=== PATIENT | male | born 1955 | race Two or more races ===

== ENCOUNTER 2020-04-24 01:45 | Emergency (ER) | payer SELFPAY ==
--- NOTE | 2020-04-24 02:36 | EDM.PDOC ---
ED HPI GENERAL MEDICAL PROBLEM - General Chief Complaint: ENT Problem Stated Complaint: NOSE BLEED Time Seen by Provider: 04/24/20 01:55 Source of Information: Reports: Patient, Other (Friend) History Limitations: Reports: No Limitations - History of Present Illness INITIAL COMMENTS - FREE TEXT/NARRATIVE: Mr. Floyd is a very pleasant 64-year-old man with no chronic medical problems and no past surgical history, who now presents the ED with painless right-sided epistaxis that began yesterday morning, 04/23/2020. He has attempted to stop the bleeding by packing it with toilet paper, to no avail. He states that he had similar epistaxis in December, but was able to get it to stop on his own. No recent trauma to the nose, and the patient is not on an anticoagulant. Here in the ED, the patient is found to be hemodynamically stable, afebrile, saturating 98% on room air. Other than the epistaxis, the patient denies recent fever, chills, sore throat, ear pain, nasal or sinus congestion, cough, dyspnea, chest pain, palpitations, nausea, vomiting, constipation, diarrhea, abdominal pain, urinary symptoms, recent weight gain or weight loss, recent bloody bowel movements or black bowel movements, recent joint aches, headaches, or rashes. The patient does not have a PCP. - Related Data Allergies Allergy/AdvReac Type Severity Reaction Status Date / Time aspirin Allergy Severe Bleeding Verified 04/24/20 01:55 Home Meds: Home Meds . 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 ED EXAM, ENT - Physical Exam Exam: See Below Exam Limited By: No Limitations General Appearance: Alert, WD/WN, No Apparent Distress Eye Exam: Bilateral Eye: EOMI, Normal Inspection Ears: Normal External Exam, Normal Canal, Hearing Grossly Normal, Normal TMs Nose: Other (Fresh bleeding from the inferior half of the right nasal septum, but no visible vessel. Left nostril normal.) Mouth/Throat: Normal Gums, Normal Lips, Normal Teeth, Other (Fresh blood seen trickling down the posterior oropharynx) Head: Atraumatic, Normocephalic Neck: Normal Inspection, Supple, Non-Tender, Full Range of Motion. No: Lymphadenopathy (L), Lymphadenopathy (R) ED ENT PROCEDURES - Epistaxis Procedure Indication: Epistaxis, Uncontrolled Recent anticoagulants/antiplatlets: No Uncontrolled HTN: No Recent septal/nasal surgery: No Site of bleeding: Right Nare, Anterior Clearing of clots: Patient Blew Nose Topical Meds: Topical Cocaine Ice pack to area: No Anterior Packing: Inflatable Nasal Tampon (5.5 cm Rapid Rhino) Complications: No Course - Vital Signs Last Recorded V/S: Last Vital Signs Temp 36.4 C 04/24/20 01:50 Pulse 88 04/24/20 01:50 Resp 20 04/24/20 01:50 BP 135/73 04/24/20 01:50 Pulse Ox 98 04/24/20 01:50 - Orders/Labs/Meds Meds: Medications Discontinued Medications Generic Name Dose Route Start Last Admin Trade Name Karine PRN Reason Stop Dose Admin Cocaine HCl 3 ml 04/24/20 02:05 04/24/20 02:20 Cocaine Hcl TOP 04/24/20 02:06 3 ml ONETIME STA Administration - Re-Assessments/Exams Free Text/Narrative Re-Assessment/Exam: 04/24/20 02:30 As above, the patient has had right-sided epistaxis since yesterday morning, 04/23/2020. I had him gently blow his nose and gargle with warm water to clear out any blood and clots. The bleeding appears to be coming from the lower half of the right nasal septum, although I do not see any distinct blood vessel that I can cauterize. I have treated the area with numerous applications of topical cocaine, and I am currently having the patient pinch his nose tightly with some cocaine soaked cotton-tipped swabs, in the hope that I can avoid having to place a balloon. 04/24/20 02:58 After several minutes of having the patient pinch his nose firmly with cocaine soaked cotton-tipped swabs, I had the patient blow his nose and gargle. At this time, there is no visible bleeding. We will wait about 15 minutes, and if there is still no bleeding, he can be discharged home, however, if the patient again bleeds, we will need to place a balloon. 04/24/20 03:14 Unfortunately, there is still some bleeding. Not much, but I am going to have to place a Rapid Rhino. 04/24/20 03:20 A 5.5 cm anterior Rapid Rhino was placed. The patient tolerated the procedure well. I will recheck the pressure in about 10 minutes. 04/24/20 03:31 I added a little more air, and Shari will now tape the tube to the patient's face. I will discharge him home with a referral to ENT, as well as to the clinic. I would like him to be seen 04/25/2020. Departure - Departure Time of Disposition: 03:31 Disposition: Home, Self-Care 01 Condition: Good Clinical Impression: Right-sided epistaxis - Discharge Information *PRESCRIPTION DRUG MONITORING PROGRAM REVIEWED*: Not Applicable *COPY OF PRESCRIPTION DRUG MONITORING REPORT IN PATIENT NELL: Not Applicable Referrals: Rob Oneill MD [Ordering Only Provider] - Krysten Diaz NP [Nurse Practitioner] - Forms: ED Department Discharge Additional Instructions: You were seen in the emergency room for a right-sided nosebleed since Tuesday morning, 03/23/2020. A Rapid Rhino balloon has been placed into your right nostril to control the bleeding. Leave the balloon alone. You may take [id number] Tylenol or ibuprofen as needed for discomfort. Follow-up with the ENT Dr. Rob Oneill, in [place], this coming Tuesday, 2019. If that is not possible, then follow-up with Krysten Diaz NP, or any 1 of the other providers who is available, on 04/25/2020. If you are unable to get in to see either Dr. Oneill or one of the clinic providers on Tuesday, or for any other problems, please do not hesitate to return to the ER. Sepsis Event Note - Evaluation Sepsis Screening Result: No Definite Risk - Focused Exam Vital Signs: Vital Signs Temp Pulse Resp BP Pulse Ox 04/24/20 01:50 36.4 C 88 20 135/73 98 Date Exam was Performed: 04/24/20 Time Exam was Performed: 03:31
== END 2020-04-24 03:39 | disposition home or self-care (01) ==
LOC: JD.ED 01:45
DX: R04.0 Epistaxis (principal); Z88.6 Allergy status to analgesic agent; Z87.891 Personal history of nicotine dependence
CPT/HCPCS: 30903; 99283-25

== ENCOUNTER 2020-04-25 11:20 | Emergency (ER) | payer SELFPAY ==
[2020-04-25] MEDS ORDERED: Sodium Chloride 0.9% 10 ML Syringe FLUSH PRN (12:25)
--- NOTE | 2020-04-25 12:38 | EDM.PDOC ---
ED HPI GENERAL MEDICAL PROBLEM - General Chief Complaint: ENT Problem Stated Complaint: NOSE BLEED Time Seen by Provider: 04/25/20 11:31 Source of Information: Reports: Patient History Limitations: Reports: No Limitations - History of Present Illness INITIAL COMMENTS - FREE TEXT/NARRATIVE: Patient is a 64-year-old male who presents to the emergency department for continued right-sided nosebleed. He was seen in our emergency department last night. An anterior Rhino Rocket was placed. Patient states since that time it has continued to drain down the back of his throat. He went to the clinic this morning and was directed to the emergency department. ENT was not available today. He complains of dizziness upon standing. He has a history of nosebleeds, however states they are "not very often". This episode of bleeding began yesterday morning. He had packed the nose with tissue and states that normally works for him, however the bleeding did not stop. He denies any chronic health problems aside from arthritis in his knees for which he takes extended release ibuprofen daily. - Related Data Allergies Allergy/AdvReac Type Severity Reaction Status Date / Time aspirin Allergy Severe Bleeding Verified 04/24/20 01:55 Home Meds: Home Meds . 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 ED EXAM, ENT - Physical Exam Exam: See Below Exam Limited By: No Limitations General Appearance: Alert, WD/WN, No Apparent Distress Nose: Other (Right-sided Rhino Rocket intact. Patient is using blood into the oropharynx. No active bleeding out the anterior portion of the nare.) Respiratory/Chest: No Respiratory Distress, Lungs Clear, Normal Breath Sounds, No Accessory Muscle Use, Chest Non-Tender Cardiovascular: Normal Peripheral Pulses, Regular Rate, Rhythm, No Edema, No Gallop, No JVD, No Murmur, No Rub Neurological: Alert, Oriented, CN II-XII Intact, Normal Cognition, Normal Gait, Normal Reflexes, No Motor/Sensory Deficits Psychiatric: Normal Affect, Normal Mood Skin: Warm, Dry, Intact, Normal Color, No Rash Course - Vital Signs Last Recorded V/S: Last Vital Signs Temp 97.8 F 04/25/20 11:32 Pulse 105 H 04/25/20 11:32 Resp 20 04/25/20 11:32 BP 115/87 04/25/20 11:32 Pulse Ox 98 04/25/20 11:32 - Orders/Labs/Meds Orders: Active Orders 24 hr Category Date Time Status Peripheral IV Care [RC] . DIRECTED Care 04/25/20 12:25 Active ANTIBODY IDENTIFICATION [BBK] Stat Lab 04/25/20 12:02 Results RED BLOOD CELLS LP [BBK] Stat Lab 04/25/20 12:02 Results TYPE AND SCREEN [BBK] Stat Lab 04/25/20 12:02 Results Peripheral IV Insertion Adult [OM.PC] Stat Oth 04/25/20 12:25 Ordered Labs: Laboratory Tests 04/25/20 04/25/20 04/25/20 Range/Units 12:02 12:02 12:02 WBC 9.18 H (4.23-9.07) K/mm3 RBC 2.89 L (4.63-6.08) M/mm3 Hgb 7.2 L* (13.7-17.5) gm/dl Hct 24.5 L (40.1-51.0) % MCV 84.8 (79.0-92.2) fl MCH 24.9 L (25.7-32.2) pg MCHC 29.4 L (32.2-35.5) g/dl RDW Std Deviation 44.2 H (35.1-43.9) fL Plt Count 202 (163-337) K/mm3 MPV 11.1 (9.4-12.3) fl Neut % (Auto) 67.6 (34.0-67.9) % Lymph % (Auto) 19.8 L (21.8-53.1) % Bartholomew % (Auto) 11.2 (5.3-12.2) % Eos % (Auto) 1.0 (0.8-7.0) Baso % (Auto) 0.2 (0.1-1.2) % Neut # (Auto) 6.20 H (1.78-5.38) K/mm3 Lymph # (Auto) 1.82 (1.32-3.57) K/mm3 Bartholomew # (Auto) 1.03 H (0.30-0.82) K/mm3 Eos # (Auto) 0.09 (0.04-0.54) K/mm3 Baso # (Auto) 0.02 (0.01-0.08) K/mm3 Manual Slide Review Abnormal smear PT 10.8 (9.7-12.0) SECONDS INR 0.99 APTT 22 (22-31) SECONDS Sodium 140 (136-145) mEq/L Potassium 3.9 (3.5-5.1) mEq/L Chloride 106 (98-107) mEq/L Carbon Dioxide 27 (21-32) mEq/L Anion Gap 10.9 (5-15) BUN 32 H (7-18) mg/dL Creatinine 1.0 (0.7-1.3) mg/dL Est Cr Clr Drug Dosing 68.23 mL/min Estimated GFR (MDRD) > 60 (>60) mL/min BUN/Creatinine Ratio 32.0 H (14-18) Glucose 106 (80-115) mg/dL Calcium 8.7 (8.5-10.1) mg/dL Total Bilirubin 0.3 (0.2-1.0) mg/dL AST 24 (15-37) U/L ALT 48 (16-63) U/L Alkaline Phosphatase 79 (46-116) U/L Total Protein 6.4 (6.4-8.2) g/dl Albumin 3.1 L (3.4-5.0) g/dl Globulin 3.3 gm/dL Albumin/Globulin Ratio 0.9 L (1-2) Blood Type Gel Antibody Screen Crossmatch 04/25/20 Range/Units 12:02 WBC (4.23-9.07) K/mm3 RBC (4.63-6.08) M/mm3 Hgb (13.7-17.5) gm/dl Hct (40.1-51.0) % MCV (79.0-92.2) fl MCH (25.7-32.2) pg MCHC (32.2-35.5) g/dl RDW Std Deviation (35.1-43.9) fL Plt Count (163-337) K/mm3 MPV (9.4-12.3) fl Neut % (Auto) (34.0-67.9) % Lymph % (Auto) (21.8-53.1) % Bartholomew % (Auto) (5.3-12.2) % Eos % (Auto) (0.8-7.0) Baso % (Auto) (0.1-1.2) % Neut # (Auto) (1.78-5.38) K/mm3 Lymph # (Auto) (1.32-3.57) K/mm3 Bartholomew # (Auto) (0.30-0.82) K/mm3 Eos # (Auto) (0.04-0.54) K/mm3 Baso # (Auto) (0.01-0.08) K/mm3 Manual Slide Review PT (9.7-12.0) SECONDS INR APTT (22-31) SECONDS Sodium (136-145) mEq/L Potassium (3.5-5.1) mEq/L Chloride (98-107) mEq/L Carbon Dioxide (21-32) mEq/L Anion Gap (5-15) BUN (7-18) mg/dL Creatinine (0.7-1.3) mg/dL Est Cr Clr Drug Dosing mL/min Estimated GFR (MDRD) (>60) mL/min BUN/Creatinine Ratio (14-18) Glucose (80-115) mg/dL Calcium (8.5-10.1) mg/dL Total Bilirubin (0.2-1.0) mg/dL AST (15-37) U/L ALT (16-63) U/L Alkaline Phosphatase (46-116) U/L Total Protein (6.4-8.2) g/dl Albumin (3.4-5.0) g/dl Globulin gm/dL Albumin/Globulin Ratio (1-2) Blood Type O POSITIVE Gel Antibody Screen Positive Crossmatch See Detail Meds: Medications Discontinued Medications Generic Name Dose Route Start Last Admin Trade Name Freq PRN Reason Stop Dose Admin Sodium Chloride 250 mls @ 25 mls/hr 04/25/20 13:15 Normal Saline IV ASDIRECTED AVELINA Sodium Chloride 1,000 mls @ 150 mls/hr 04/25/20 13:45 04/25/20 13:36 Normal Saline IV 150 mls/hr ASDIRECTED AVELINA Administration Sodium Chloride 10 ml 04/25/20 12:25 04/25/20 12:52 Saline Flush FLUSH 10 ml ASDIRECTED PRN Administration Keep Vein Open - Re-Assessments/Exams Free Text/Narrative Re-Assessment/Exam: Pt is a 64-year-old male who returns to the ER with continued oozing from his right-sided nosebleed. Anterior Rhino Rocket was placed last evening. I inserted an additional 3 cc of air into the Rhino Rocket. Will reassess in about 10 minutes. Also ordered blood work to include a CBC, CMP, APTT, PT/INR as he has been bleeding since yesterday morning. 04/25/20 1200 Patient continues to have oozing despite the additional air inserted. I removed the 5.5 anterior Rhino Rocket and inserted a 7.5 cm anterior posterior Rhino Rocket. Will reassess in 10 minutes. 04/25/20 1210 Patient continues to ooze to the Rhino Rocket. An additional 2 cc of air has been instilled. 04/25/20 1220 Patient is still oozing through anterior portion of the Rhino Rocket. I deflated the balloon and retracted the Rhino Rocket a couple centimeters. Re- instilled 10 cc of air into the Rhino Rocket. 04/25/20 1230 His hemoglobin was found to be 7.2. I have ordered a type and screen and 2 units to be crossmatched. The bleeding from his right nare has decreased, however does continue to ooze. The plan will be to transfuse a unit of RBCs and contact [facility] to discuss transfer. Second unit of packed red blood cells can transfuse enroute. 04/25/20 1320 We have been notified by lab that the patient has antibodies so blood will not be available to transfuse in our ER. I will contact [facility] to discuss transfer 04/25/20 13[address] [facility] Dr. Sheehan in the emergency department accepted patient for transfer. They will consult ENT as needed. Departure - Departure Time of Disposition: 13:30 Disposition: DC/Tfer to Acute Hospital 02 Condition: Good Clinical Impression: Epistaxis, Anemia due to blood loss, acute - Discharge Information Referrals: PCP,None [Primary Care Provider] - Forms: ED Department Discharge Sepsis Event Note - Evaluation Sepsis Screening Result: No Definite Risk - Focused Exam Vital Signs: Vital Signs Temp Pulse Resp BP Pulse Ox 04/25/20 11:32 97.8 F 105 H 20 115/87 98 Date Exam was Performed: 04/25/20 Time Exam was Performed: 17:13 - My Orders Last 24 Hours: My Active Orders 04/25/20 12:02 ANTIBODY IDENTIFICATION [BBK] Stat RED BLOOD CELLS LP [BBK] Stat TYPE AND SCREEN [BBK] Stat 04/25/20 12:25 Peripheral IV Care [RC] . DIRECTED Peripheral IV Insertion Adult [OM.PC] Stat - Assessment/Plan Last 24 Hours: My Active Orders 04/25/20 12:02 ANTIBODY IDENTIFICATION [BBK] Stat RED BLOOD CELLS LP [BBK] Stat TYPE AND SCREEN [BBK] Stat 04/25/20 12:25 Peripheral IV Care [RC] . DIRECTED Peripheral IV Insertion Adult [OM.PC] Stat
[2020-04-25] MEDS ORDERED: Sodium Chloride 0.9% 250 ML IV SCH (13:15)
[2020-04-25] MEDS ORDERED: Sodium Chloride 0.9% 1,000 ML IV SCH (13:45)
== END 2020-04-25 14:33 ==
LOC: JD.ED 11:20
DX: R04.0 Epistaxis (principal); D62 Acute posthemorrhagic anemia
CPT/HCPCS: 30903; 36415; 80053; 85025; 85610; 85730; 99284; J7030; 30901; 86850; 86870; 86900; 86901; 86905; 99283

== ENCOUNTER 2020-10-08 06:44 | Emergency (ER) | payer MEDICAID, OTHER ==
[2020-10-08] MEDS ORDERED: Oxymetazoline 0.05% Nasal Spray 30 ML Bottle NAS ONE (07:11)
[2020-10-08] MEDS ORDERED: Lidocaine 1% with EPINEPHrine 1:100,000 10 ML MDV INJECT ONE (07:11)
[2020-10-08] MEDS ORDERED: Tranexamic Acid 1,000 MG in Sodium Chloride 0.9% 100 ML IV SCH (07:15)
--- NOTE | 2020-10-08 07:59 | EDM.PDOC ---
ED HPI GENERAL MEDICAL PROBLEM - General Chief Complaint: ENT Problem Stated Complaint: BLOODY NOSE Time Seen by Provider: 10/08/20 07:01 Source of Information: Reports: Patient History Limitations: Reports: No Limitations - History of Present Illness INITIAL COMMENTS - FREE TEXT/NARRATIVE: The patient presents with epistaxis. This started about 2 hours ago and it is from the right nostril. He has a history of nose bleeds. He was seen here in April twice for a nose bleed from the right nostril. A rhino rocket was placed and his was anemic and he had to be transferred to [place]. The patient said not much was done when he got there. He has a history of low platelets however in April they were normal. Onset: Gradual Duration: Day(s): (2) Severity: Moderate Improves with: Reports: None Worsens with: Reports: None Associated Symptoms: Reports: No Other Symptoms - Related Data Allergies Allergy/AdvReac Type Severity Reaction Status Date / Time aspirin AdvReac Severe Bleeding Verified 10/08/20 07:32 Home Meds: Home Meds . 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) ED ROS ENT - Review of Systems Review Of Systems: See Below Constitutional: Reports: No Symptoms HEENT: Reports: Nosebleed Respiratory: Reports: No Symptoms Cardiovascular: Reports: No Symptoms Endocrine: Reports: No Symptoms GI/Abdominal: Reports: No Symptoms : Reports: No Symptoms Musculoskeletal: Reports: No Symptoms ED EXAM, ENT - Physical Exam Exam: See Below Exam Limited By: No Limitations General Appearance: Alert, No Apparent Distress Ears: Normal External Exam Nose: Active Bleeding (from right nostril) Mouth/Throat: Normal Inspection Head: Atraumatic, Normocephalic Neck: Normal Inspection Respiratory/Chest: No Respiratory Distress ED ENT PROCEDURES - Epistaxis Procedure Indication: Epistaxis Recent anticoagulants/antiplatlets: No Uncontrolled HTN: No Recent septal/nasal surgery: No Site of bleeding: Right Nare Clearing of clots: Patient Blew Nose Topical Meds: Phenylephrine, Other (lidocaine with epinephrine and TXA) Chemical cautery: Silver Nitrate Topical Complications: No Course - Vital Signs Last Recorded V/S: Last Vital Signs Temp 97.9 F 10/08/20 06:56 Pulse 89 10/08/20 06:56 Resp 18 10/08/20 06:56 BP 138/90 10/08/20 06:56 Pulse Ox 97 10/08/20 06:56 - Orders/Labs/Meds Labs: Laboratory Tests 10/08/20 Range/Units 08:00 WBC 4.06 L (4.23-9.07) K/mm3 RBC 5.06 (4.63-6.08) M/mm3 Hgb 11.3 L D (13.7-17.5) gm/dl Hct 39.1 L (40.1-51.0) % MCV 77.3 L D (79.0-92.2) fl MCH 22.3 L (25.7-32.2) pg MCHC 28.9 L (32.2-35.5) g/dl RDW Std Deviation 55.7 H (35.1-43.9) fL Plt Count 165 (163-337) K/mm3 MPV 10.5 (9.4-12.3) fl Neut % (Auto) 64.0 (34.0-67.9) % Lymph % (Auto) 21.7 L (21.8-53.1) % Bailey % (Auto) 11.3 (5.3-12.2) % Eos % (Auto) 2.5 (0.8-7.0) Baso % (Auto) 0.5 (0.1-1.2) % Neut # (Auto) 2.60 (1.78-5.38) K/mm3 Lymph # (Auto) 0.88 L (1.32-3.57) K/mm3 Bailey # (Auto) 0.46 (0.30-0.82) K/mm3 Eos # (Auto) 0.10 (0.04-0.54) K/mm3 Baso # (Auto) 0.02 (0.01-0.08) K/mm3 Meds: Medications Discontinued Medications Generic Name Dose Route Start Last Admin Trade Name Freq PRN Reason Stop Dose Admin Tranexamic Acid 1,000 mg/ 110 mls @ 400 mls/hr 10/08/20 07:15 Sodium Chloride IV ONETIME AVELINA Lidocaine/Epinephrine 10 ml 10/08/20 07:11 10/08/20 07:18 Xylocaine 1% With Epinephrine 1:100,000 INJECT 10/08/20 07:12 10 ml ONETIME ONE Administration Oxymetazoline HCl 10 ml 10/08/20 07:11 10/08/20 07:17 Nasal Decongestant [place] OJ 10/08/20 07:12 1 inhalation ONETIME ONE Administration Tranexamic Acid 1,000 mg 10/08/20 07:19 10/08/20 07:20 Cyklokapron TOP 10/08/20 07:20 1,000 mg ONETIME ONE Administration - Re-Assessments/Exams Free Text/Narrative Re-Assessment/Exam: 10/08/20 08:03 I used TXA, lidocaine with epinephrine, and afrin to slow the bleeding and then I used silver nitrate to cauterize the bleeding. 10/08/20 08:29 The bleeding has stopped. His Hgb was a little low at 11.3. His platelets are normal at 165. I will discharge him home. Departure - Departure Time of Disposition: 08:30 Disposition: Home, Self-Care 01 Condition: Good Clinical Impression: Right-sided epistaxis - Discharge Information *PRESCRIPTION DRUG MONITORING PROGRAM REVIEWED*: Not Applicable *COPY OF PRESCRIPTION DRUG MONITORING REPORT IN PATIENT NELL: Not Applicable Referrals: PCP,None [Primary Care Provider] - Krysten Diaz, DENIS [Nurse Practitioner] - 1 Week Forms: ED Department Discharge Additional Instructions: A couple times per day put some antibiotic ointment in each nostril for a couple weeks or you can get a product called Mantador or NasoGel. There is also a product called NasalCEASE that can help with nose bleeds. Follow up with your doctor and please return if you are worse. Sepsis Event Note (ED) - Evaluation Sepsis Screening Result: No Definite Risk - Focused Exam Vital Signs: Vital Signs Temp Pulse Resp BP Pulse Ox 10/08/20 06:56 97.9 F 89 18 138/90 97
== END 2020-10-08 10:35 | disposition home or self-care (01) ==
LOC: JD.ED 06:44
DX: R04.0 Epistaxis (principal); Z88.6 Allergy status to analgesic agent
CPT/HCPCS: 30903; 36415; 85025; 99283; A9270; 30901; 99282

== ENCOUNTER 2020-10-10 08:55 | Emergency (ER) | payer OTHER ==
--- NOTE | 2020-10-10 09:28 | EDM.PDOC ---
ED HPI GENERAL MEDICAL PROBLEM - General Chief Complaint: ENT Problem Stated Complaint: NOSE BLEED FOLLOW UP Time Seen by Provider: 10/10/20 09:12 Source of Information: Reports: Patient History Limitations: Reports: No Limitations - History of Present Illness INITIAL COMMENTS - FREE TEXT/NARRATIVE: 65-year-old male presents to the ED for removal of a anterior posterior Rhino R ocket right naris. This was placed by Dr. Mendoza yesterday for an aggressive right-sided nosebleed. Reports no bleeding from the naris since the pack was placed and no bleeding down the back of the throat. Onset Date: 10/08/20 Duration: Day(s):, Improving Location: Reports: Face (Recurrent bleeding right anterior nares.) Quality: Reports: Other Severity: Moderate (Here for removal of anterior posterior nasal pack) Improves with: Reports: Other (Eating under control at present with posterior and anterior Rhino Rocket) Context: Reports: Other (Traumatic spontaneous right epistaxis.). Denies: Activity, Exercise, Lifting, Sick Contact, Trauma Associated Symptoms: Reports: Other (He is a little headed and weak. Has developed anemia from nosebleeds in the past.) Treatments PRIVACY COMPLIANCE MANAGER: Reports: Other (see below) - Related Data Allergies Allergy/AdvReac Type Severity Reaction Status Date / Time aspirin AdvReac Severe Bleeding Verified 10/10/20 09:07 Home Meds: Home Meds . 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 Denies: Fever, Chills, Malaise, Fatigue, Weight Loss HEENT: Reports: Other (] Right nares that appears to be soaked with blood) Respiratory: Reports: No Symptoms Cardiovascular: Reports: No Symptoms Endocrine: Reports: No Symptoms GI/Abdominal: Reports: No Symptoms : Reports: No Symptoms Musculoskeletal: Reports: No Symptoms Skin: Reports: No Symptoms Neurological: Reports: No Symptoms Psychiatric: Reports: No Symptoms Hematologic/Lymphatic: Reports: No Symptoms ED EXAM, ENT - Physical Exam Exam: See Below Exam Limited By: No Limitations General Appearance: Alert, WD/WN, No Apparent Distress, Other (Temperature is 3 6.9. Heart rate 91 is sinus respiratory is 12 with O2 sats of 98% room air BP 123/89) Eye Exam: Bilateral Eye: Normal Inspection (No blepharal pallor or scleral icterus.), PERRL Nose: Other (The posterior anterior nasal Rhino Rocket was removed gently from the right nares after deflating the bulbs. There was still appreciable mild bleeding from the anterior nasal septum. This area underwent cauterization with silver nitrate in 5 different spots.) Neck: Normal Inspection, Supple, Non-Tender, Full Range of Motion. No: Lymphadenopathy (L), Lymphadenopathy (R) Course - Vital Signs Last Recorded V/S: Last Vital Signs Temp 36.9 C 10/10/20 09:07 Pulse 91 10/10/20 09:07 Resp 12 10/10/20 09:07 BP 123/89 10/10/20 09:07 Pulse Ox 98 10/10/20 09:07 - Orders/Labs/Meds Labs: Laboratory Tests 10/10/20 Range/Units 10:04 Hgb 11.6 L (13.7-17.5) gm/dl Hct 40.0 L (40.1-51.0) % - Radiology Interpretation Free Text/Narrative:: 65-year-old male presents to the ED for removal of a anterior posterior Rhino Rocket that was placed by Dr. Mendoza yesterday. He did not come under control with transiently casted and 1% lidocaine with epinephrine and Afrin mixture. Patient has had no further bleeding since the Rhino Rocket was placed. I deflated the balloons and was able to remove the Rhino Rocket. Inspection of the nares however shows active bleeding from the right anterior nasal septum. I cauterized this area in 5 different areas with silver nitrate. I will review the patient in the next 10 to 15 minutes. - Re-Assessments/Exams Free Text/Narrative Re-Assessment/Exam: 10/10/20 09:49 on review he still had very active bleeding from the left anterior nasal septum. Further cauterization brought a little bit of it under control but not completely. I therefore packed the nares with Vaseline impregnated tube gauze. I will review him in the next 10 to 15 minutes. 10/10/20 10:14 on recheck patient still has very minimal oozing of pinkish tinged fluid from the anterior nasal septum. The packing itself is not soaked with blood. I will watch him over the next half hour until his hemoglobin and hematocrit returns. 10/10/20 10:54 on rechecks he continues to lose a small amount of blood from the anterior nasal septum. I therefore elected to remove the pack that I had placed earlier and replaced it with another Vaseline impregnated tube gauze pack this with time a little bit further back into the posterior nares. His hemoglobin is 11.6 with hematocrit of 40. Patient was so advised. We will recheck in 15 minutes or so. 10/10/20 11:15 eating has diminished but he still losing slightly I believe from the anterior nasal septum. I am going to send him home and allow him to rest in an easy chair is sitting up for the next 4 to 6 hours. If he continues to ooze or bleed and it does not clot he will have to come back for an anterior posterior nasal pack again. Departure - Departure Time of Disposition: 11:16 Disposition: Home, Self-Care 01 Condition: Fair Clinical Impression: Anterior epistaxis - Discharge Information *PRESCRIPTION DRUG MONITORING PROGRAM REVIEWED*: Not Applicable *COPY OF PRESCRIPTION DRUG MONITORING REPORT IN PATIENT NELL: Not Applicable Instructions: Nosebleed, [id number] Referrals: PCP,None [Primary Care Provider] - Forms: ED Department Discharge Additional Instructions: Evaluation in the emergency room today in regards to having your posterior anterior nasal pack removed that was placed yesterday 24 hours ago. It appears that there is still active bleeding coming from the left anterior nasal septum. Cauterization of this area with silver nitrate was carried out x2 but failed to control the bleeding. Vaseline impregnated gauze packing was therefore placed x2 and there is still remains a mild ooze coming from the left anterior nasal septum. Suggest home to rest for the next 4 to 6 hours. If bleeding is persisting after that time I clot has not performed them please return to the ED for further more aggressive packing. Sepsis Event Note (ED) - Evaluation Sepsis Screening Result: No Definite Risk - Focused Exam Vital Signs: Vital Signs Temp Pulse Resp BP Pulse Ox 10/10/20 09:07 36.9 C 91 12 123/89 98
== END 2020-10-10 11:36 | disposition home or self-care (01) ==
LOC: JD.ED 08:55
DX: R04.0 Epistaxis (principal); Z88.6 Allergy status to analgesic agent
CPT/HCPCS: 30901; 30903; 36415; 85014; 85018; 99282; 99283-25

== ENCOUNTER 2020-12-25 16:06 | Emergency (ER) | payer MEDICAID, OTHER ==
--- NOTE | 2020-12-25 17:20 | EDM.PDOC ---
ED HPI GENERAL MEDICAL PROBLEM - General Chief Complaint: General Stated Complaint: NOSE BLEED Time Seen by Provider: 12/25/20 16:15 Source of Information: Reports: Patient History Limitations: Reports: No Limitations - History of Present Illness INITIAL COMMENTS - FREE TEXT/NARRATIVE: The patient presents with epistaxis. He has a history of this. He has a history of idiopathic thrombocytopenia. He has been here a few time for the same. This started at 8 am this morning. He took Amicar as advised by her doctor when he gets a nose bleed and it did slow down. He does feel weak and drained. He is wondering if his blood counts are off. Onset: Gradual Duration: Hour(s): Severity: Moderate Improves with: Reports: None Worsens with: Reports: None Associated Symptoms: Reports: No Other Symptoms Treatments RN INFUSION: Reports: Other (see below) Other Treatments RN INFUSION: Amicar 500mg - Related Data Allergies Allergy/AdvReac Type Severity Reaction Status Date / Time aspirin AdvReac Severe Bleeding Verified 12/25/20 16:21 Home Meds: Home Meds Aminocaproic Acid [Amicar] 500 mg PO DAILY PRN 12/25/20 [History] Past Medical History HEENT History: Reports: Epistaxis, Impaired Vision Hematologic History: Reports: Idiopathic Thrombocytopenia Social & Family History - Family History Family Medical History: No Pertinent Family History - Tobacco Use Tobacco Use Status *Q: Never Tobacco User - Caffeine Use Caffeine Use: Reports: None - Recreational Drug Use Recreational Drug Use: No - Living Situation & Occupation Living situation: Reports: , Alone 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) ED ROS GENERAL - Review of Systems Review Of Systems: See Below Constitutional: Reports: No Symptoms HEENT: Reports: Other (epistaxis) Respiratory: Reports: No Symptoms Cardiovascular: Reports: No Symptoms Endocrine: Reports: No Symptoms GI/Abdominal: Reports: No Symptoms : Reports: No Symptoms Musculoskeletal: Reports: No Symptoms ED EXAM, GENERAL - Physical Exam Exam: See Below Exam Limited By: No Limitations General Appearance: Alert, No Apparent Distress Ears: Normal External Exam Nose: Other (right nostril bleeding to the anterior septum) Head: Atraumatic, Normocephalic Neck: Normal Inspection Respiratory/Chest: No Respiratory Distress ED EPISTAXIS PROCEDURES - Epistaxis Procedure Indication: Epistaxis Recent anticoagulants/antiplatlets: No Uncontrolled HTN: No Recent septal/nasal surgery: No Site of bleeding: Right Nare Chemical cautery: Silver Nitrate Topical Complications: No Course - Vital Signs Last Recorded V/S: Last Vital Signs Temp 98.5 F 12/25/20 16:24 Pulse 76 12/25/20 16:24 Resp 14 12/25/20 16:24 BP 120/81 12/25/20 16:24 Pulse Ox 95 12/25/20 16:24 - Orders/Labs/Meds Orders: Active Orders 24 hr Category Date Time Status Cardiac Monitoring [RC] . DIRECTED Care 12/25/20 16:33 Active Labs: Laboratory Tests 12/25/20 12/25/20 Range/Units 16:41 16:41 WBC 5.42 (4.23-9.07) K/mm3 RBC 4.12 L (4.63-6.08) M/mm3 Hgb 10.6 L (13.7-17.5) gm/dl Hct 34.6 L (40.1-51.0) % MCV 84.0 D (79.0-92.2) fl MCH 25.7 (25.7-32.2) pg MCHC 30.6 L (32.2-35.5) g/dl RDW Std Deviation 56.6 H (35.1-43.9) fL Plt Count 234 (163-337) K/mm3 MPV 10.5 (9.4-12.3) fl Neut % (Auto) 63.9 (34.0-67.9) % Lymph % (Auto) 24.0 (21.8-53.1) % [place] % (Auto) 9.8 (5.3-12.2) % Eos % (Auto) 1.7 (0.8-7.0) Baso % (Auto) 0.4 (0.1-1.2) % Neut # (Auto) 3.47 (1.78-5.38) K/mm3 Lymph # (Auto) 1.30 L (1.32-3.57) K/mm3 [place] # (Auto) 0.53 (0.30-0.82) K/mm3 Eos # (Auto) 0.09 (0.04-0.54) K/mm3 Baso # (Auto) 0.02 (0.01-0.08) K/mm3 PT 11.7 (9.7-12.0) SECONDS INR 1.10 APTT 22.4 (21.7-31.4) SECONDS - Re-Assessments/Exams Free Text/Narrative Re-Assessment/Exam: 12/25/20 17:25 I used silver nitrate to stop the bleeding. I will check labs. 12/25/20 18:29 He still had more bleeding so I put some packing in and that help but there was still a little more bleeding. He does not want any more packing or rhino rocket. I will discharge him home. Departure - Departure Time of Disposition: 18:30 Disposition: Home, Self-Care 01 Condition: Good Clinical Impression: Epistaxis - Discharge Information *PRESCRIPTION DRUG MONITORING PROGRAM REVIEWED*: Not Applicable *COPY OF PRESCRIPTION DRUG MONITORING REPORT IN PATIENT NELL: Not Applicable Referrals: PCP,None [Primary Care Provider] - Forms: ED Department Discharge Additional Instructions: Take your medication as prescribed. Have the packing removed in a couple of days. Please return if you are worse. Put some antibiotic ointment in each nostril 2 times per day. Sepsis Event Note (ED) - Evaluation Sepsis Screening Result: No Definite Risk - Focused Exam Vital Signs: Vital Signs Temp Pulse Resp BP Pulse Ox 12/25/20 16:24 98.5 F 76 14 120/81 95 - My Orders Last 24 Hours: My Active Orders 12/25/20 16:33 Cardiac Monitoring [RC] . DIRECTED - Assessment/Plan Last 24 Hours: My Active Orders 12/25/20 16:33 Cardiac Monitoring [RC] . DIRECTED
[2020-12-25] MEDS ORDERED: Sodium Chloride 0.9% 10 ML Syringe FLUSH PRN (19:16)
[2020-12-25] MEDS ORDERED: Sodium Chloride 0.9% 1,000 ML IV ONE (19:17)
== END 2020-12-25 20:58 | disposition home or self-care (01) ==
LOC: JD.ED 16:06
DX: R04.0 Epistaxis (principal)
CPT/HCPCS: 30901; 36415; 82962; 85014; 85018; 85025; 85610; 85730; 99283; J7030; 99282

== ENCOUNTER 2020-12-26 02:54 | Emergency (ER) | payer MEDICAID ==
--- NOTE | 2020-12-26 03:23 | EDM.PDOC ---
ED HPI GENERAL MEDICAL PROBLEM - General Chief Complaint: ENT Problem Stated Complaint: NOSE BLEED Time Seen by Provider: 12/26/20 03:06 Source of Information: Reports: Patient History Limitations: Reports: No Limitations - History of Present Illness INITIAL COMMENTS - FREE TEXT/NARRATIVE: Mr. 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 The ED physician cauterized a visible vessel with silver nitrate, with successful cessation of bleeding. He placed Vaseline gauze. The patient now returns to the ED stating that he started feeling blood coming out of his left nose around 23:30 last night. No pain. He placed some cotton balls of both his left and right nostril before coming to the ED. Here in the ED, the patient's initial BP is found to be slightly elevated at 147/75, otherwise, he is hemodynamically stable, afebrile, saturating 95% on room air. Other than his recurrent epistaxis, the patient denies having a recent fever, chills, sore throat, ear pain, nasal or sinus congestion, cough, dyspnea, chest pain, palpitations, nausea, vomiting, constipation, diarrhea, abdominal pain, urinary symptoms, recent weight gain or weight loss, recent bloody bowel movements or black bowel movements, recent joint aches, headaches, or rashes. The patient does not recall the name of his PCP. He does not recall the name of his Bilingual Patient Support Caseworker. His Motion Study Engineer is Dr. Geoff Infante. He has not received an influenza vaccine this season, and declined an offer to receive one here in the ED. Headache Pain Score (Numeric/FACES): 5 - Related Data Allergies Allergy/AdvReac Type Severity Reaction Status Date / Time aspirin AdvReac Severe Bleeding Verified 12/26/20 03:03 Home Meds: Home Meds Aminocaproic Acid [Amicar] 500 mg PO DAILY PRN 12/25/20 [History] Past Medical History HEENT History: Reports: Epistaxis (recurrent right), Impaired Vision Hematologic History: Reports: Other (See Below) (Platelet dysfunction disorder) Social & Family History - Tobacco Use Tobacco Use Status *Q: Former Tobacco User Years of Tobacco use: 22 Packs/Tins Daily: 1 Month/Year Tobacco Last Used: Quit 1996 - Caffeine Use Caffeine Use: Reports: None - Alcohol Use Alcohol Use History: No - Recreational Drug Use Recreational Drug Use: No - Living Situation & Occupation Living situation: Reports: , Alone 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 ED EXAM, ENT - Physical Exam Exam: See Below Exam Limited By: No Limitations General Appearance: Alert, WD/WN, No Apparent Distress Eye Exam: Bilateral Eye: EOMI, Normal Inspection Ears: Normal External Exam, Hearing Grossly Normal Nose: Other (No visible bleeding from the left nostril. Packing visible within the right nostril, however, no active bleeding seen, however, active blood was running down the posterior oropharynx, indicating that there was continued right nostril bleeding.) Mouth/Throat: Normal Gums, Normal Lips, Normal Teeth, Other (Fresh blood seen running down the posterior oropharynx) Head: Atraumatic, Normocephalic Neck: Normal Inspection, Supple, Non-Tender, Full Range of Motion. No: Lymphadenopathy (L), Lymphadenopathy (R) ED ENT PROCEDURES - Epistaxis Procedure Indication: Epistaxis, Uncontrolled Recent anticoagulants/antiplatlets: No Uncontrolled HTN: No Recent septal/nasal surgery: No Site of bleeding: Right Nare, Anterior Clearing of clots: Patient Blew Nose Anterior Packing: Inflatable Nasal Tampon (5.5 cm RapidRhino) Complications: No Course - Vital Signs Last Recorded V/S: Last Vital Signs Temp 36.2 C 12/26/20 03:03 Pulse 78 12/26/20 03:03 Resp 16 12/26/20 03:03 BP 147/75 H 12/26/20 03:03 Pulse Ox 95 12/26/20 03:03 - Re-Assessments/Exams Free Text/Narrative Re-Assessment/Exam: 12/26/20 03:20 As above, the patient returns to the ED with what he thought was bleeding out of his left nostril, but in fact it turns out to be continued bleeding from his right nostril that his gone around and is not coming on his left. I removed the Vaseline gauze from his right nostril and placed a 5.5 cm RapidRhino. I will recheck the balloon in about 10 minutes. 12/26/20 03:36 After 10 minutes, I reevaluated the patient. He still had fresh blood running down his posterior oropharynx, indicating that he likely has a posterior bleed. I therefore removed the 5.5 cm RapidRhino and placed a 7.5 cm anterior- posterior RapidRhino. I will reevaluate him in 10 minutes. 12/26/20 03:49 After 10 minutes, I reevaluated the patient. At this time, there is no fresh blood running down his posterior oropharynx. I will plan to keep him here in the ED for another 15 minutes or so, then reevaluate him. If there is still no sign of bleeding, he can be discharged home. 12/26/20 04:03 After 10 minutes, I reevaluated the patient. There is again seen fresh blood running down his posterior oropharynx. I increased the amount of air in the balloon and had him regargle with water. I will recheck him again in about 10 minutes. 12/26/20 04:20 After about 15 minutes, I reevaluated the patient. No fresh blood is seen running down his posterior oropharynx. I will therefore discharge him home with the recommendation that he contact the office of his ENT this morning, to arrange to be seen JOYCE. Departure - Departure Time of Disposition: 04:21 Disposition: Home, Self-Care 01 Condition: Good Clinical Impression: Epistaxis - Discharge Information *PRESCRIPTION DRUG MONITORING PROGRAM REVIEWED*: Not Applicable *COPY OF PRESCRIPTION DRUG MONITORING REPORT IN PATIENT NELL: Not Applicable Referrals: Geoff Infante MD [Ordering Only Provider] - Forms: ED Department Discharge Additional Instructions: You were seen in the emergency room for continuation of your right nosebleed. In order to control your nosebleed, an anterior-posterior RapidRhino balloon needed to be placed. It is very important that you follow-up with your Ear, Nose, and Throat doctor as soon as possible. Please contact their office first thing this morning to m ana arrangements to be seen. If any other problems, please do not hesitate to return to the ER. Sepsis Event Note (ED) - Evaluation Sepsis Screening Result: No Definite Risk - Focused Exam Vital Signs: Vital Signs Temp Pulse Resp BP Pulse Ox 12/26/20 03:03 36.2 C 78 16 147/75 H 95 ED EPISTAXIS PROCEDURES - Epistaxis Procedure Indication: Epistaxis, Uncontrolled Recent anticoagulants/antiplatlets: No Uncontrolled HTN: No Recent septal/nasal surgery: No Site of bleeding: Right Nare, Posterior Clearing of clots: Patient Blew Nose Anterior Packing: Inflatable Nasal Tampon (7.5 cm Anterior-Posterior RapidRhino) Complications: No
== END 2020-12-26 04:46 | disposition home or self-care (01) ==
LOC: JD.ED 02:54
DX: R04.0 Epistaxis (principal); Z87.891 Personal history of nicotine dependence; Z88.8 Allergy status to other drugs, medicaments and biological substances
CPT/HCPCS: 30903; 30905; 99282; 99283-25

== ENCOUNTER 2020-12-28 04:41 | Emergency (ER) | payer MEDICAID ==
--- NOTE | 2020-12-28 05:06 | EDM.PDOC ---
ED HPI GENERAL MEDICAL PROBLEM - General Chief Complaint: ENT Problem Stated Complaint: BAD NOSE BLEED Time Seen by Provider: 12/28/20 04:42 Source of Information: Reports: Patient History Limitations: Reports: No Limitations - History of Present Illness INITIAL COMMENTS - FREE TEXT/NARRATIVE: This is a 65-year-old male. He has been in the ER 2 times in the last week and he comes tonight because of a right nasal passage nosebleed. He was here about 2 days ago and had a Rhino Rocket placed in the right nasal passage. He noted this morning he woke up and was bleeding around the Rhino Rocket. So he comes to the ER for evaluation. He states he has a bleeding problem and he was anemic at one time due to his nosebleeds. He does have an appointment with a nose doctor on Tuesday that he is supposed to go see. He denies any other acute symptoms. Right Nare Pain Score (Numeric/FACES): 5 - Related Data Allergies Allergy/AdvReac Type Severity Reaction Status Date / Time aspirin AdvReac Severe Bleeding Verified 12/26/20 03:03 Home Meds: Home Meds Aminocaproic Acid [Amicar] 500 mg PO DAILY PRN 12/25/20 [History] Past Medical History HEENT History: Reports: Epistaxis, Impaired Vision Hematologic History: Reports: Other (See Below) (Platelet dysfunction disorder) Social & Family History - Family History Family Medical History: No Pertinent Family History - Caffeine Use Caffeine Use: Reports: None - Living Situation & Occupation Living situation: Reports: , Alone 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) ED ROS ENT - Review of Systems Review Of Systems: See Below Constitutional: Denies: Fever, Chills HEENT: Reports: Nosebleed Respiratory: Reports: No Symptoms Cardiovascular: Reports: No Symptoms Endocrine: Reports: No Symptoms GI/Abdominal: Reports: No Symptoms : Reports: No Symptoms Musculoskeletal: Reports: No Symptoms Skin: Reports: No Symptoms Neurological: Reports: No Symptoms Psychiatric: Reports: No Symptoms Hematologic/Lymphatic: Reports: Anemia, Easy Bleeding ED EXAM, ENT - Physical Exam Exam: See Below Exam Limited By: No Limitations General Appearance: Alert, WD/WN, Mild Distress, Other (He is not complaining of pain he is just concerned about the nosebleed) Eye Exam: Bilateral Eye: Normal Inspection Ears: Normal External Exam Nose: Active Bleeding, Dried Blood, Other (Right nasal passage has a Rhino Rocket, there is bleeding and a blood clot at the very tip of his nose.) Mouth/Throat: Other (Some blood going down the back of his throat but no blood clots are noted) Head: Normocephalic Neck: Supple Respiratory/Chest: No Respiratory Distress GI/Abdominal: Soft Back: Full Range of Motion Extremities: Normal Inspection, Normal Range of Motion Neurological: Alert, Oriented Psychiatric: Anxious Skin: Warm, Dry ED ENT PROCEDURES - Epistaxis Procedure Indication: Epistaxis Recent anticoagulants/antiplatlets: No Uncontrolled HTN: No Recent septal/nasal surgery: No Site of bleeding: Right Nare Clearing of clots: Other (Remove the Rhino Rocket and we pulled out a large clot with it) Topical Meds: Topical Cocaine Ice pack to area: No Anterior Packing: Other (I removed the old Rhino Rocket and replaced it with a new Rhino Rocket this seemed to be effective in stopping the bleeding. It was a 7 cm Rhino Rocket that I placed in his right nasal passage.) Complications: No Course - Vital Signs Last Recorded V/S: Last Vital Signs Temp 97.9 F 12/28/20 04:48 Pulse 118 H 12/28/20 04:48 Resp 20 12/28/20 04:48 BP 128/85 12/28/20 04:48 Pulse Ox 97 12/28/20 04:48 - Orders/Labs/Meds Labs: Laboratory Tests 12/28/20 Range/Units 05:20 WBC 10.80 H (4.23-9.07) K/mm3 RBC 3.85 L (4.63-6.08) M/mm3 Hgb 9.9 L (13.7-17.5) gm/dl Hct 32.5 L (40.1-51.0) % MCV 84.4 (79.0-92.2) fl MCH 25.7 (25.7-32.2) pg MCHC 30.5 L (32.2-35.5) g/dl RDW Std Deviation 57.3 H (35.1-43.9) fL Plt Count 210 (163-337) K/mm3 MPV 10.9 (9.4-12.3) fl Neut % (Auto) 69.9 H (34.0-67.9) % Lymph % (Auto) 15.3 L (21.8-53.1) % [place] % (Auto) 14.1 H (5.3-12.2) % Eos % (Auto) 0.4 L (0.8-7.0) Baso % (Auto) 0.2 (0.1-1.2) % Neut # (Auto) 7.56 H (1.78-5.38) K/mm3 Lymph # (Auto) 1.65 (1.32-3.57) K/mm3 [place] # (Auto) 1.52 H (0.30-0.82) K/mm3 Eos # (Auto) 0.04 (0.04-0.54) K/mm3 Baso # (Auto) 0.02 (0.01-0.08) K/mm3 Manual Slide Review Normal smear Meds: Medications Discontinued Medications Generic Name Dose Route Start Last Admin Trade Name Freq PRN Reason Stop Dose Admin Cocaine HCl Confirm 12/28/20 04:52 12/28/20 05:20 Cocaine Hcl Administered 12/28/20 04:53 Not Given Dose 4 ml .ROUTE .STK-MED ONE Cocaine HCl 4 ml 12/28/20 05:19 Cocaine Hcl TOP 12/28/20 05:20 ONETIME ONE - Re-Assessments/Exams Free Text/Narrative Re-Assessment/Exam: 12/28/20 06:01 Been watching the patient carefully now for about an hour and it seemed that his nosebleed is stopped. His hemoglobin is 9.9 and lower than it was on the fifth but his bleeding appears to be controlled. He has an appointment with ENT on Tuesday. Departure - Departure Time of Disposition: 06:03 Disposition: Home, Self-Care 01 Condition: Fair Clinical Impression: Epistaxis Anemia Qualifiers: Anemia type: other cause Other causes of anemia: other cause, not classified Qualified Code(s): D64.89 - Other specified anemias - Discharge Information *PRESCRIPTION DRUG MONITORING PROGRAM REVIEWED*: Not Applicable *COPY OF PRESCRIPTION DRUG MONITORING REPORT IN PATIENT NELL: Not Applicable Instructions: Nosebleed, [id number] Referrals: PCP,None [Primary Care Provider] - Forms: ED Department Discharge Additional Instructions: Do not touch the packing in your nose just leave it alone today, you will probably have a little bit of drainage down the back of your throat but it should not be much, follow-up with the ENT doctor on Tuesday that you have an appointment with, return to the ER as needed Sepsis Event Note (ED) - Evaluation Sepsis Screening Result: No Definite Risk - Focused Exam Vital Signs: Vital Signs Temp Pulse Resp BP Pulse Ox 12/28/20 04:48 97.9 F 118 H 20 128/85 97
== END 2020-12-28 06:19 | disposition home or self-care (01) ==
LOC: JD.ED 04:41
DX: R04.0 Epistaxis (principal); D64.89 Other specified anemias; Z88.6 Allergy status to analgesic agent
CPT/HCPCS: 30901; 30903; 36415; 85025; 99282; 99283-25

== ENCOUNTER 2020-12-29 14:11 | Emergency (ER) | payer MEDICAID ==
--- NOTE | 2020-12-29 14:35 | EDM.PDOC ---
ED HPI GENERAL MEDICAL PROBLEM - General Chief Complaint: ENT Problem Stated Complaint: [facility] Time Seen by Provider: 12/29/20 14:11 - History of Present Illness INITIAL COMMENTS - FREE TEXT/NARRATIVE: 65-year-old male sent over here from the [place] specialty clinic for uncontrolled epistaxis. Patient has a underlying bleeding disorder. Apparently was seen in the emergency room back on the fourth of this month at which time he had some cautery done he was back on the fifth and was having some persistent bleeding and a 5.5 rapid Rhino was placed this did not control the bleeding a 7.5 was placed and this did do okay until the seventh he was seen at the 7.5 replaced. Today he was seen by Dr. Crow ears nose and throat specialist from [place] in [place] who is at specialty clinic at [facility]. She removed the rapid Rhino and did not have the best packing material the patient had some cautery done but this did not control the situation so the patient was sent here with what looks like an anterior packing and was still bleeding. I did discuss the situation with Dr. Crow recommend replacing with 7.5 rapid Rhino and starting Keflex. - Related Data Allergies Allergy/AdvReac Type Severity Reaction Status Date / Time aspirin AdvReac Severe Bleeding Verified 12/29/20 14:20 Home Meds: Home Meds Aminocaproic Acid [Amicar] 500 mg PO DAILY PRN 12/25/20 [History] cephALEXin [Keflex] 500 mg PO QID #28 cap 12/29/20 [Rx] Past Medical History HEENT History: Reports: Epistaxis, Impaired Vision Hematologic History: Reports: Other (See Below) Social & Family History - Family History Family Medical History: No Pertinent Family History - Tobacco Use Tobacco Use Status *Q: Never Tobacco User Second Hand Smoke Exposure: No - Caffeine Use Caffeine Use: Reports: None - Recreational Drug Use Recreational Drug Use: No - Living Situation & Occupation Living situation: Reports: , Alone 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 ROS ENT - Review of Systems Review Of Systems: See Below Constitutional: Reports: No Symptoms HEENT: Reports: Nosebleed Respiratory: Reports: No Symptoms Cardiovascular: Reports: No Symptoms GI/Abdominal: Reports: No Symptoms Neurological: Reports: No Symptoms Hematologic/Lymphatic: Reports: Easy Bleeding ED EXAM, ENT - Physical Exam Exam: See Below Exam Limited By: No Limitations General Appearance: Alert, No Apparent Distress, Other (Right naris has a slow but active study trickle of blood coming down the posterior pharynx) Mouth/Throat: Normal Inspection, Normal Gums, Normal Lips, Other (Bleeding as stated above no other acute changes noted) Head: Atraumatic, Normocephalic Neck: Normal Inspection, Supple, Non-Tender. No: Lymphadenopathy (L), Lymphadenopathy (R) Respiratory/Chest: No Respiratory Distress, Lungs Clear, Normal Breath Sounds Cardiovascular: No Edema, No Murmur, Tachycardia (Rate approximately 110 regular) Neurological: Alert, Oriented, Normal Cognition Psychiatric: Normal Affect, Normal Mood ED ENT PROCEDURES - Epistaxis Procedure Indication: Epistaxis Uncontrolled HTN: No Site of bleeding: Right Nare Clearing of clots: Patient Blew Nose Anterior Packing: Other (Epic Rhino 7.5 was placed) Posterior packing: Other (Rapid Rhino 7.5 was placed) Complications: No (Replacement at 7.5 rapid rhino patient experienced minimal bleeding down the posterior pharynx this eventually stopped after a few minutes he has a little bit of oozing more watery material from the right nares and this is a drop every few minutes of watery blood-tinged fluid and this is slowing over time.) Course - Vital Signs Last Recorded V/S: Last Vital Signs Temp 37.2 C 12/29/20 14:45 Pulse 108 H 12/29/20 15:45 Resp 16 12/29/20 15:45 BP 113/76 12/29/20 15:45 Pulse Ox 97 12/29/20 15:45 - Orders/Labs/Meds Labs: Laboratory Tests 12/29/20 12/29/20 12/29/20 Range/Units 14:47 14:47 14:47 WBC 10.66 H (4.23-9.07) K/mm3 RBC 3.79 L (4.63-6.08) M/mm3 Hgb 9.7 L (13.7-17.5) gm/dl Hct 32.4 L (40.1-51.0) % MCV 85.5 (79.0-92.2) fl MCH 25.6 L (25.7-32.2) pg MCHC 29.9 L (32.2-35.5) g/dl RDW Std Deviation 59.2 H (35.1-43.9) fL Plt Count 209 (163-337) K/mm3 MPV 10.5 (9.4-12.3) fl Neut % (Auto) 76.3 H (34.0-67.9) % Lymph % (Auto) 10.6 L (21.8-53.1) % [place] % (Auto) 12.5 H (5.3-12.2) % Eos % (Auto) 0.1 L (0.8-7.0) Baso % (Auto) 0.2 (0.1-1.2) % Neut # (Auto) 8.14 H (1.78-5.38) K/mm3 Lymph # (Auto) 1.13 L (1.32-3.57) K/mm3 [place] # (Auto) 1.33 H (0.30-0.82) K/mm3 Eos # (Auto) 0.01 L (0.04-0.54) K/mm3 Baso # (Auto) 0.02 (0.01-0.08) K/mm3 Manual Slide Review Abnormal smear PT 11.3 (9.7-12.0) SECONDS INR 1.06 APTT 23.4 (21.7-31.4) SECONDS Sodium 138 (136-145) mEq/L Potassium 4.2 (3.5-5.1) mEq/L Chloride 101 (98-107) mEq/L Carbon Dioxide 27 (21-32) mEq/L Anion Gap 14.2 (5-15) BUN 21 H (7-18) mg/dL Creatinine 1.0 (0.7-1.3) mg/dL Est Cr Clr Drug Dosing 62.49 mL/min Estimated GFR (MDRD) > 60 (>60) mL/min BUN/Creatinine Ratio 21.0 H (14-18) Glucose 120 H (80-115) mg/dL Calcium 8.9 (8.5-10.1) mg/dL Total Bilirubin 0.3 (0.2-1.0) mg/dL AST 16 (15-37) U/L ALT 33 (16-63) U/L Alkaline Phosphatase 85 (46-116) U/L Total Protein 7.0 (6.4-8.2) g/dl Albumin 3.1 L (3.4-5.0) g/dl Globulin 3.9 gm/dL Albumin/Globulin Ratio 0.8 L (1-2) Meds: Medications Discontinued Medications Generic Name Dose Route Start Last Admin Trade Name Karine PRN Reason Stop Dose Admin Cephalexin 500 mg 12/29/20 15:55 12/29/20 16:01 Keflex PO 12/29/20 15:56 500 mg ONETIME ONE Administration Lactated Ringer's 1,000 mls @ 999 mls/hr 12/29/20 15:55 12/29/20 16:12 Ringers, Lactated IV 12/29/20 16:55 999 mls/hr .BOLUS ONE Administration - Re-Assessments/Exams Free Text/Narrative Re-Assessment/Exam: 12/29/20 15:[address] Infante, he is not entirely sure what is causing the bleeding problem he needs more advanced platelet studies then can be done in [place]. His recommendation is to take the Amicar 10 tablets, or 5 g and then 1 g, or 2 tabs every hour for 3 to 4 hours until the bleeding completely stops. Patient has been taking a couple tablets every hour to control the bleeding and does not sound like he is had the bolus dosing. The patient upon arrival I removed his old packing. And a 7.5 rapid Rhino was placed initially with 6 cc of air this was increased to 8 cc of air few minutes later the patient has had pretty good control of his bleeding since that time. Unfortunately his pulse is stayed up some and give him a liter of fluid prior to discharge. Laboratory evaluation is otherwise fairly stable at this point platelet counts 208,000. 12/29/20 17:29 Patient is doing well IV fluids are at a while ago the patient had some blood coming out of the front of the nose this was just a few drops but more than it has been I deflated the cuff rapid Rhino withdrew a couple millimeters then reinflated it this seems to have helped. We will discharge home at this time. Departure - Departure Time of Disposition: 17:30 Disposition: Home, Self-Care 01 Clinical Impression: Right-sided epistaxis - Discharge Information Prescriptions: cephALEXin [Keflex] 500 mg PO QID #28 cap Referrals: PCP,None [Primary Care Provider] - Forms: ED Department Discharge Additional Instructions: Return to the emergency room with any questions problems or worsening symptoms. Take the Amicar 10 tablets when you get home for a total of 5 g. Then 2 tablets for a total of 1 g every hour for the next 3 to 4 hours, or until the bleeding completely stops.. You have been started on cephalexin 500 mg 4 times a day he will take this for a week. This is been sent electronically to the clinic pharmacy. Follow-up with Dr. Infante on Tuesday as scheduled. Follow-up with Dr. Crow as scheduled at the end of this week. Sepsis Event Note (ED) - Evaluation Sepsis Screening Result: No Definite Risk - Focused Exam Vital Signs: Vital Signs Temp Pulse Resp BP Pulse Ox 12/29/20 15:45 108 H 16 113/76 97 12/29/20 14:45 37.2 C 117 H 16 126/79 97 12/29/20 14:15 37.3 C 120 H 18 126/70 98
[2020-12-29] MEDS ORDERED: Cephalexin 500 MG Cap PO ONE (15:55)
[2020-12-29] MEDS ORDERED: Lactated Ringers 1,000 ML IV ONE (15:55)
== END 2020-12-29 18:02 | disposition home or self-care (01) ==
LOC: JD.ED 14:11
DX: R04.0 Epistaxis (principal); Z88.8 Allergy status to other drugs, medicaments and biological substances
CPT/HCPCS: 30905; 36415; 80053; 85025; 85610; 85730; 99283; A9270; J7120; 30906

== ENCOUNTER 2021-02-05 17:03 | Emergency (ER) | payer MEDICAID ==
--- NOTE | 2021-02-05 18:27 | EDM.PDOC ---
ED HPI GENERAL MEDICAL PROBLEM - General Chief Complaint: Lower Extremity Injury/Pain Stated Complaint: LT CALF SWOLLEN Time Seen by Provider: 02/05/21 17:12 Source of Information: Reports: Patient, RN Notes Reviewed History Limitations: Reports: No Limitations - History of Present Illness INITIAL COMMENTS - FREE TEXT/NARRATIVE: Patient is a 65 year old male presenting to the ER with c/o swelling and a bruise to his left lower calf. He states that yesterday he got a cramp in his calf and today he awoke with swelling and a bruise on his posterior calf. Denies any known trauma or injury to this area. He has a bleeding disorder; however, is unsure of the actual diagnosis. States that his platelets don't clot like the should. He has had thrombocytopenia in the past as well. We have seen him in this ER on numerous occasions for uncontrolled epistaxis. Left Lower Leg Pain Score (Numeric/FACES): 7 - Related Data Allergies Allergy/AdvReac Type Severity Reaction Status Date / Time aspirin AdvReac Severe Bleeding Verified 02/05/21 17:15 Home Meds: Home Meds . 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 Denies: Shortness of Breath, Cough Cardiovascular: Reports: No Symptoms GI/Abdominal: Reports: No Symptoms Genitourinary: Reports: No Symptoms Musculoskeletal: Reports: Other (pain, swelling, and ecchymosis to the right calf) ED EXAM, GENERAL - Physical Exam Exam: See Below Exam Limited By: No Limitations General Appearance: Alert, WD/WN, No Apparent Distress Respiratory/Chest: No Respiratory Distress, Lungs Clear, Normal Breath Sounds, No Accessory Muscle Use, Chest Non-Tender Cardiovascular: Normal Peripheral Pulses, Regular Rate, Rhythm, No Edema, No Gallop, No JVD, No Murmur, No Rub Extremities: Other (edema and a faint are of ecchymosis to the left calf. Pedal pulses +2) Neurological: Alert, Oriented, CN II-XII Intact, Normal Cognition, Normal Gait, Normal Reflexes, No Motor/Sensory Deficits Psychiatric: Normal Affect, Normal Mood Skin Exam: Warm, Dry, Intact, Normal Color, No Rash Course - Vital Signs Last Recorded V/S: Last Vital Signs Temp 97.3 F 02/05/21 17:14 Pulse 93 02/05/21 19:11 Resp 17 02/05/21 19:11 BP 136/76 02/05/21 19:11 Pulse Ox 99 02/05/21 19:11 - Orders/Labs/Meds Labs: Laboratory Tests 02/05/21 02/05/21 02/05/21 Range/Units 17:25 17:25 17:25 WBC 6.84 (4.23-9.07) K/mm3 RBC 4.45 L (4.63-6.08) M/mm3 Hgb 10.0 L (13.7-17.5) gm/dl Hct 34.4 L (40.1-51.0) % MCV 77.3 L D (79.0-92.2) fl MCH 22.5 L (25.7-32.2) pg MCHC 29.1 L (32.2-35.5) g/dl RDW Std Deviation 48.1 H (35.1-43.9) fL Plt Count 235 (163-337) K/mm3 MPV 10.8 (9.4-12.3) fl Neut % (Auto) 60.6 (34.0-67.9) % Lymph % (Auto) 22.2 (21.8-53.1) % [place] % (Auto) 15.5 H (5.3-12.2) % Eos % (Auto) 1.2 (0.8-7.0) Baso % (Auto) 0.4 (0.1-1.2) % Neut # (Auto) 4.14 (1.78-5.38) K/mm3 Lymph # (Auto) 1.52 (1.32-3.57) K/mm3 [place] # (Auto) 1.06 H (0.30-0.82) K/mm3 Eos # (Auto) 0.08 (0.04-0.54) K/mm3 Baso # (Auto) 0.03 (0.01-0.08) K/mm3 Manual Slide Review Abnormal smear PT 11.5 (9.7-12.0) SECONDS INR 1.08 APTT 24.6 (21.7-31.4) SECONDS Sodium 140 (136-145) mEq/L Potassium 3.7 (3.5-5.1) mEq/L Chloride 104 (98-107) mEq/L Carbon Dioxide 29 (21-32) mEq/L Anion Gap 10.7 (5-15) BUN 19 H (7-18) mg/dL Creatinine 1.0 (0.7-1.3) mg/dL Est Cr Clr Drug Dosing 67.34 mL/min Estimated GFR (MDRD) > 60 (>60) mL/min BUN/Creatinine Ratio 19.0 H (14-18) Glucose 127 H (80-115) mg/dL Calcium 8.9 (8.5-10.1) mg/dL Total Bilirubin 0.6 (0.2-1.0) mg/dL AST 44 H (15-37) U/L ALT 82 H (16-63) U/L Alkaline Phosphatase 85 (46-116) U/L Total Protein 7.5 (6.4-8.2) g/dl Albumin 3.5 (3.4-5.0) g/dl Globulin 4.0 gm/dL Albumin/Globulin Ratio 0.9 L (1-2) - Re-Assessments/Exams Free Text/Narrative Re-Assessment/Exam: Pt is a 65 year old male presenting to the ER with c/o left calf pain, swelling, and a bruise that began this morning. He states that he had a cramp last evening. On exam, he has edema to of left calf with a faint bruise to the left posterior calf. Left pedal pulse is +2. Given the history of a cramp followed by swelling and a notable bruise, I feel it is likely that the cramp caused some bleeding into the soft tissue caused by his bleeding disorder. I will complete blood work including CBC, CMP, APTT, and PT/INR. I have also ordered a venous Doppler left lower extremity to rule out DVT, however my suspicion for this is low. 02/05/21 18:56 Hematology significant for hemoglobin low at 10.0, BUN 19, AST 44, ALT 82. Coags are normal. Platelets are normal today. Venous Doppler of the left lower extremity shows poor visualization of the calf veins with no findings of deep venous thrombosis is otherwise seen within the left lower extremity or right common femoral vein. Given the presence of bruising, I feel that the crampy experienced likely cause some bleeding within the subcutaneous tissues resulting in the swelling and bruising. I apply Joni wrap to the extremity. Recommend ice and elevation. Discussed return precautions. Discharge instructions as do cumented. Departure - Departure Time of Disposition: 19:05 Disposition: Home, Self-Care 01 Condition: Good Clinical Impression: Left leg swelling - Discharge Information Referrals: PCP,None [Primary Care Provider] - Forms: ED Department Discharge Additional Instructions: You were seen in the emergency department today for swelling and bruising to your left calf after having a cramp yesterday. Blood work and ultrasound of the extremity were done and found to be normal. As we discussed, given your bleeding disorder, the cramp likely caused some bleeding within the tissues which resulted in the bruising and the swelling. An Joni wrap has been applied to the extremity. Wear this for the next few days to reduce swelling. Also recommend intermittent icing and elevation of the extremity when at rest. If you should experience worsening symptoms such as increased pain or numbness of the left foot, please return to the emergency department for reevaluation Sepsis Event Note (ED) - Evaluation Sepsis Screening Result: No Definite Risk
--- NOTE | 2021-02-05 18:32 | US ---
Left lower extremity deep venous ultrasound: Duplex and color Doppler evaluation were obtained of the right and left common femoral; left superficial femoral, popliteal, posterior tibial and peroneal veins. Calf veins are poorly seen. Other veins show normal phasic flow, augmentation and compression. Impression: 1. Poor visualization of the calf veins. 2. No findings of deep venous thrombosis is otherwise seen within left lower extremity or right common femoral vein. Diagnostic code #2
== END 2021-02-05 19:11 | disposition home or self-care (01) ==
LOC: JD.ED 17:03
DX: M79.89 Other specified soft tissue disorders (principal); M79.81 Nontraumatic hematoma of soft tissue; D69.6 Thrombocytopenia, unspecified; Z87.891 Personal history of nicotine dependence; Z88.6 Allergy status to analgesic agent
CPT/HCPCS: 36415; 80053; 85025; 85610; 85730; 93971-26-LT; 93971-LT; 99282; 99284-25

== ENCOUNTER 2021-04-23 14:41 | Emergency (ER) | payer MEDICAID ==
[2021-04-23] MEDS ORDERED: Oxymetazoline 0.05% Nasal Spray 30 ML Bottle NAS ONE (15:06)
--- NOTE | 2021-04-23 15:10 | EDM.PDOC ---
ED HPI GENERAL MEDICAL PROBLEM - General Chief Complaint: ENT Problem Stated Complaint: NOSE BLEED Time Seen by Provider: 04/23/21 14:54 Source of Information: Reports: Patient, RN Notes Reviewed History Limitations: Reports: No Limitations - History of Present Illness INITIAL COMMENTS - FREE TEXT/NARRATIVE: Patient is a 65-year-old male who presents to the ER for his nosebleed. Patient is known to this ER for platelet dysfunction, and frequent nosebleeds, he notes his last major nosebleed was in December however. He did take his Amicar, the way he was told to take it when the nosebleed started however has not helped. He believes the bleeding is coming out of the right nare. He presents with a nasal pack in place. He states that this started this morning. He feels slightly dizzy and lightheaded, but not horribly worse from baseline. He has had no other sick symptoms prior to coming to the ER. - Related Data Allergies Allergy/AdvReac Type Severity Reaction Status Date / Time aspirin AdvReac Severe Bleeding Verified 04/23/21 14:58 Home Meds: Home Meds Aminocaproic Acid [Amicar] 10 tab PO ASDIRECTED 04/23/21 [History] Past Medical History HEENT History: Reports: Epistaxis, Impaired Vision Hematologic History: Reports: Other (See Below) Other Hematologic History: thrombocytopenia Social & Family History - Family History Family Medical History: No Pertinent Family History - Tobacco Use Tobacco Use Status *Q: Never Tobacco User - Caffeine Use Caffeine Use: Reports: Coffee - Recreational Drug Use Recreational Drug Use: No - Living Situation & Occupation Living situation: Reports: , Alone 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 ED EXAM, ENT - Physical Exam Exam: See Below Exam Limited By: No Limitations General Appearance: Alert, WD/WN, No Apparent Distress Nose: Active Bleeding (slight dripping coming from R nare, nasal packing was dislodged and the patient did have a rather large clot that came with it; there are no sanchez bleeds noted) Head: Atraumatic, Normocephalic Respiratory/Chest: No Respiratory Distress, Lungs Clear, Normal Breath Sounds, No Accessory Muscle Use, Chest Non-Tender Cardiovascular: Normal Peripheral Pulses, Regular Rate, Rhythm, No Edema Extremities: Normal Inspection, Normal Capillary Refill Neurological: Alert, Oriented, Normal Cognition, No Motor/Sensory Deficits Psychiatric: Normal Affect, Normal Mood Skin: Warm, Dry, Intact, Normal Color, No Rash ED ENT PROCEDURES - Epistaxis Procedure Indication: Epistaxis Recent anticoagulants/antiplatlets: No Uncontrolled HTN: No Recent septal/nasal surgery: No Site of bleeding: Right Nare Clearing of clots: Patient Blew Nose Topical Meds: Phenylephrine, Topical Cocaine Ice pack to area: No Anterior Packing: Plain Gauze Strip Posterior packing: Long Inflatable Nasal Tampon (7.5cm ant/post rhino rocket was ultimately placed) Complications: No Complication Description: bleeding was not abled to be controlled with typical measures and a 7.5cm rhino rocket was placed with adequate balloon pressure to stop bleeding. Course - Vital Signs Last Recorded V/S: Last Vital Signs Temp 97.8 F 04/23/21 14:54 Pulse 92 04/23/21 14:54 Resp 16 04/23/21 14:54 BP 126/77 04/23/21 14:54 Pulse Ox 92 L 04/23/21 14:54 - Orders/Labs/Meds Labs: Laboratory Tests 04/23/21 Range/Units 15:20 WBC 3.93 L (4.23-9.07) K/mm3 RBC 5.04 (4.63-6.08) M/mm3 Hgb 11.9 L D (13.7-17.5) gm/dl Hct 39.7 L (40.1-51.0) % MCV 78.8 L (79.0-92.2) fl MCH 23.6 L (25.7-32.2) pg MCHC 30.0 L (32.2-35.5) g/dl RDW Std Deviation 70.0 H (35.1-43.9) fL Plt Count 217 (163-337) K/mm3 MPV 11.1 (9.4-12.3) fl Neut % (Auto) 45.8 (34.0-67.9) % Lymph % (Auto) 33.8 (21.8-53.1) % Kidder % (Auto) 14.5 H (5.3-12.2) % Eos % (Auto) 5.1 (0.8-7.0) Baso % (Auto) 0.8 (0.1-1.2) % Neut # (Auto) 1.80 (1.78-5.38) K/mm3 Lymph # (Auto) 1.33 (1.32-3.57) K/mm3 [place] # (Auto) 0.57 (0.30-0.82) K/mm3 Eos # (Auto) 0.20 (0.04-0.54) K/mm3 Baso # (Auto) 0.03 (0.01-0.08) K/mm3 Manual Slide Review Abnormal smear Meds: Medications Discontinued Medications Generic Name Dose Route Start Last Admin Trade Name Freq PRN Reason Stop Dose Admin Cocaine HCl 1 ml 04/23/21 15:04/23/21 16:17 Cocaine 4 Ml Bottle TOP 04/23/21 15:07 1 ml ONETIME ONE Administration Oxymetazoline HCl 1 ml 04/23/21 15:06 04/23/21 16:17 Oxymetazoline 0.05% Nasal [place] 30 Ml Bottle OJ 04/23/21 15:07 1 ml ONETIME ONE Administration - Re-Assessments/Exams Free Text/Narrative Re-Assessment/Exam: 04/23/21 15:13 Patient presents to the ER for his nosebleed, for today's purposes we will first try topical applications to see if this helps stops the bleeding. Ultimately the patient has needed Rhino Rocket's in the past to stop the bleeding. We will also get basic CBC to check on platelet count, as he states that his last labs were likely done in December. 04/23/21 16:59 We did try cocaine and oxymetazoline for the nosebleed however he was still bleeding through this packing, so ultimately a 7.5 cm AP Rhino Rocket was placed with adequate balloon pressure, this seemed to stop the bleeding. Patient's labs demonstrate a platelet count of 217,000, and hemoglobin 11.9, all of which are within normal limits. We will have him try to keep this Rhino Rocket in place for 72 hours, or until Tuesday morning if possible. I will have him either come back to this ER, or try to follow-up with an ENT for removal of the Rhino Rocket on Tuesday if possible. Departure - Departure Time of Disposition: 17:01 Disposition: Home, Self-Care 01 Condition: Good Clinical Impression: Right-sided epistaxis - Discharge Information *PRESCRIPTION DRUG MONITORING PROGRAM REVIEWED*: No *COPY OF PRESCRIPTION DRUG MONITORING REPORT IN PATIENT NELL: No Instructions: Nosebleed, [id number] Referrals: Geoff Infante MD [Primary Care Provider] - Forms: ED Department Discharge Additional Instructions: You were seen in this ER for your right-sided nosebleed. A few different modalities were tried, such as topical cocaine and nasal decongestant however these options failed and ultimately a 7.5 cm Rhino Rocket was placed into your right nasal passage. This seemed to provide good control of the nosebleed at this time. Laboratory evaluation demonstrated your platelet count was 217,000, your hemoglobin is 11.9, all of which are within normal limits. Highly and strongly recommend you try to keep this Rhino Rocket in until Tuesday morning if possible. You may return to this ER for removal of the Rhino Rocket, or follow-up with ENT, to see if there is anything that needs to be done for further evaluation and management. Please do not hesitate to return to the ER at any time over the weekend if the Rhino Rocket seems to be failing. Sepsis Event Note (ED) - Evaluation Sepsis Screening Result: No Definite Risk - Focused Exam Vital Signs: Vital Signs Temp Pulse Resp BP Pulse Ox 04/23/21 14:54 97.8 F 92 16 126/77 92 L
== END 2021-04-23 17:27 | disposition home or self-care (01) ==
LOC: JD.ED 14:41
DX: R04.0 Epistaxis (principal); Z88.8 Allergy status to other drugs, medicaments and biological substances
CPT/HCPCS: 30905; 36415; 85025; 99283; A9270; 30903; 99282

== ENCOUNTER 2021-04-25 16:41 | Emergency (ER) | payer MEDICAID ==
[2021-04-25] MEDS ORDERED: cefTRIAXone 1 GM in Sodium Chloride 0.9% 100 ML IV ONE (18:30)
--- NOTE | 2021-04-25 19:25 | EDM.PDOC ---
ED HPI GENERAL MEDICAL PROBLEM - General Chief Complaint: ENT Problem Stated Complaint: NOSE BLEED Time Seen by Provider: 04/25/21 17:24 Source of Information: Reports: Patient, RN Notes Reviewed - History of Present Illness INITIAL COMMENTS - FREE TEXT/NARRATIVE: 65 yr old male comes in with concerns about R nose bleed. This started 2 days ago. He was evaluated in this ED. Bleeding was not controlled with simple measures so a 6.5 cm AP rhino balloon was inserted. See that record for details. Pt did fine yesterday. He states he started having some oozing of blood distal R nares about 2 hrs ago. There has been no drainage of blood down the back of his throat. He has started having some mild swelling of his R lower eyelid. He has started having some mattery drainage from the medial aspect of his R eye. No fever or chills. Right Eye Pain Score (Numeric/FACES): 7 - Related Data Allergies Allergy/AdvReac Type Severity Reaction Status Date / Time aspirin AdvReac Severe Bleeding Verified 04/23/21 14:58 Home Meds: Home Meds Aminocaproic Acid [Amicar] 10 tab PO ASDIRECTED 04/23/21 [History] Erythromycin Base [Erythromycin 0.5% Ophth Oint] 1 applic OP TID #1 tube 04/25/21 [Rx] LORazepam [Ativan] 0.5 mg PO QPM #6 tablet 04/25/21 [Rx] cephALEXin [Cephalexin] 500 mg PO Q8HR #14 capsule 04/25/21 [Rx] Past Medical History HEENT History: Reports: Epistaxis, Impaired Vision Hematologic History: Reports: Other (See Below) Other Hematologic History: thrombocytopenia Social & Family History - Family History Family Medical History: No Pertinent Family History - Tobacco Use Tobacco Use Status *Q: Never Tobacco User - Caffeine Use Caffeine Use: Reports: Coffee, Tea - Recreational Drug Use Recreational Drug Use: No - Living Situation & Occupation Living situation: Reports: , Alone 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) ED ROS ENT - Review of Systems Review Of Systems: See Below Constitutional: Denies: Fever, Chills HEENT: Reports: Eye Discharge, Nosebleed, Nose Pain, Sinus Problem Respiratory: Denies: Shortness of Breath Cardiovascular: Denies: Chest Pain GI/Abdominal: Denies: Abdominal Pain, Nausea, Vomiting Musculoskeletal: Reports: No Symptoms Skin: Reports: No Symptoms Neurological: Denies: Headache ED EXAM, ENT - Physical Exam Exam: See Below General Appearance: Alert, Mild Distress Eye Exam: Right Eye: Conjunctival Injection (mild), Bilateral Eye: Other (there is some mild white drainage medial aspect of R eye) Nose: Other (He has a rhino balloon R nares. There is very slight amt of blood present medial aspect of the distal balloon that patient has been dabbing with a tissue. No active bleeding at time of exam) Mouth/Throat: Normal Inspection (no blood visible back of throat) Head: Facial Swelling (F lower eyelid) Respiratory/Chest: No Respiratory Distress, Lungs Clear Cardiovascular: Tachycardia Extremities: Normal Inspection Neurological: Alert, Oriented, No Motor/Sensory Deficits Skin: Warm, Dry, Normal Color, No Rash Course - Vital Signs Last Recorded V/S: Last Vital Signs Temp 99.2 F 04/25/21 18:51 Pulse 94 04/25/21 18:51 Resp 18 04/25/21 18:51 BP 123/84 04/25/21 18:51 Pulse Ox 91 L 04/25/21 18:51 - Orders/Labs/Meds Meds: Medications Discontinued Medications Generic Name Dose Route Start Last Admin Trade Name Freq PRN Reason Stop Dose Admin Ceftriaxone Sodium 1 gm/ 100 mls @ 200 mls/hr 04/25/21 18:30 04/25/21 18:48 Sodium Chloride IV 04/25/21 18:59 200 mls/hr ONETIME ONE Administration - Re-Assessments/Exams Free Text/Narrative Re-Assessment/Exam: 04/25/21 19:50 Pt had not been started on antibiotics. Have given rocephin 1 gram IV. Will start on cephalexin 500 mg tid first dose tomorrow AM. Erythromycin abx ointment R eye tid. Discharge instr. as documented. Departure - Departure Time of Disposition: 19:17 Disposition: Home, Self-Care 01 Clinical Impression: Epistaxis - Discharge Information Prescriptions: LORazepam [Ativan] 0.5 mg PO QPM #6 tablet cephALEXin [Cephalexin] 500 mg PO Q8HR #14 capsule Erythromycin Base [Erythromycin 0.5% Ophth Oint] 1 applic OP TID #1 tube Instructions: Nosebleed, [id number] Referrals: PCP,None [Primary Care Provider] - Forms: ED Department Discharge Additional Instructions: Cephalexin 500 mg 3 times daily for 1 week or until gone, first dose tomorrow morning. Erythromycin antibiotic ointment R eye 3 times daily. Ativan 0.5 mg 1 hr before bedtime to help you sleep. Prescriptions have been sent to [facility], at the [email or web address]. Go there now to car pick up driver these meds. They do close at 10 PM this later evening. Tylenol q 6 to 8 hr if needed for discomfort. Try keep head elevated above chest as much as possible. Have balloon removed Tuesday as planned. Return to ED as needed if symptoms worsening in any way. Sepsis Event Note (ED) - Evaluation Sepsis Screening Result: No Definite Risk - Focused Exam Vital Signs: Vital Signs Temp Pulse Resp BP Pulse Ox 04/25/21 18:51 99.2 F 94 18 123/84 91 L 04/25/21 17:03 99.1 F 115 H 20 132/92 H 96
== END 2021-04-25 19:45 | disposition home or self-care (01) ==
LOC: JD.ED 16:41
DX: R04.0 Epistaxis (principal); Z88.8 Allergy status to other drugs, medicaments and biological substances
CPT/HCPCS: 96365; 99283; J0696

== ENCOUNTER 2021-04-27 09:42 | Emergency (ER) | payer MEDICAID ==
--- NOTE | 2021-04-27 11:09 | EDM.PDOC ---
ED HPI GENERAL MEDICAL PROBLEM - General Chief Complaint: ENT Problem Stated Complaint: NOSE COMPLAINT Time Seen by Provider: 04/27/21 10:36 Source of Information: Reports: Patient, RN Notes Reviewed History Limitations: Reports: No Limitations - History of Present Illness INITIAL COMMENTS - FREE TEXT/NARRATIVE: Patient is a 65-year-old male presenting to the emergency department to have a nasal packing removed from his right nare. He was seen in this emergency department 2 days ago and had the packing placed. He was recommended to have it removed today. He has a history of recurrent nosebleeds for which he takes Amicar 10 tabs at the beginning of the bleeding. He reports that he had a small amount of oozing around the Rhino Rocket yesterday. - Related Data Allergies Allergy/AdvReac Type Severity Reaction Status Date / Time aspirin AdvReac Severe Bleeding Verified 04/29/21 11:44 Home Meds: Home Meds Aminocaproic Acid [Amicar] 10 tab PO ASDIRECTED 04/23/21 [History] Erythromycin Base [Erythromycin 0.5% Ophth Oint] 1 applic OP TID #1 tube 04/25/21 [Rx] LORazepam [Ativan] 0.5 mg PO QPM #6 tablet 04/25/21 [Rx] cephALEXin [Cephalexin] 500 mg PO Q8HR #14 capsule 04/25/21 [Rx] Past Medical History HEENT History: Reports: Epistaxis, Impaired Vision Hematologic History: Reports: Other (See Below) Other Hematologic History: thrombocytopenia Social & Family History - Family History Family Medical History: No Pertinent Family History - Tobacco Use Tobacco Use Status *Q: Never Tobacco User - Caffeine Use Caffeine Use: Reports: Coffee, Tea - Recreational Drug Use Recreational Drug Use: No - Living Situation & Occupation Living situation: Reports: , Alone 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 ED EXAM, ENT - Physical Exam Exam: See Below Exam Limited By: No Limitations General Appearance: Alert, WD/WN, No Apparent Distress Nose: Dried Blood. No: Active Bleeding Respiratory/Chest: No Respiratory Distress, Lungs Clear, Normal Breath Sounds, No Accessory Muscle Use, Chest Non-Tender Cardiovascular: Normal Peripheral Pulses, Regular Rate, Rhythm, No Edema, No Gallop, No JVD, No Murmur, No Rub GI/Abdominal: Normal Bowel Sounds, Soft, Non-Tender, No Organomegaly, No Distention, No Abnormal Bruit, No Mass Neurological: Alert, Oriented, CN II-XII Intact, Normal Cognition, Normal Gait, Normal Reflexes, No Motor/Sensory Deficits Psychiatric: Normal Affect, Normal Mood Skin: Warm, Dry, Intact, Normal Color, No Rash Course - Vital Signs Last Recorded V/S: Last Vital Signs Temp 98.3 F 04/27/21 09:50 Pulse 104 H 04/27/21 09:50 Resp 16 04/27/21 09:50 BP 140/85 04/27/21 09:50 Pulse Ox 95 04/27/21 09:50 - Orders/Labs/Meds Meds: Medications Discontinued Medications Generic Name Dose Route Start Last Admin Trade Name Karine PRN Reason Stop Dose Admin Lidocaine/Epinephrine 10 ml 04/27/21 12:08 04/27/21 12:23 Lidocaine 1% With Epinephrine 1:100,000 10 Ml Mdv INJECT 04/27/21 12:09 5 ml ONETIME ONE Administration Oxymetazoline HCl 2 ml 04/27/21 12:08 04/27/21 12:23 Oxymetazoline 0.05% Nasal [place] 30 Ml Bottle OJ 04/27/21 12:09 5 ml ONETIME ONE Administration Tranexamic Acid 1,000 mg 04/27/21 12:15 04/27/21 12:23 Tranexamic Acid 1,000 Mg/10 Ml Amp TOP 500 mg ONETIME AVELINA Administration - Re-Assessments/Exams Free Text/Narrative Re-Assessment/Exam: Patient is a 65-year-old male presenting to the emergency department with request of having his Rhino Rocket nasal packing removed from his right nare. This was placed 2 days ago. After the balloon was deflated, the Rhino Rocket was removed without complication. Patient tolerated well. He blew his nose and had a very small amount of blood on the tissue. We will watch him to ensure that the bleeding does not resume. He did take 10 tablets of his Amicar after the nasal packing was removed. 04/27/21 11:28 On reexamination, patient does have a moderate amount of bleeding from his right nare. He would like to wait to put the packing back in. He will take his Amicar given about 15 minutes and give it some time to work. If the bleeding does not stop, we will then have to repack the nare. 04/27/21 1230 Patient continues to have a small amount of bleeding from his right nare. I packed the nare with gauze saturated with a mixture of TXA, oxymetazoline, and lidocaine with epi. We will let this sit for a while and see if this stops the bleeding. 04/27/21 1350 Packing was removed and no bleeding was visualized for a short time to see if bleeding should restart. 04/27/21 14:21 Right nare did begin to bleed again. I have put a 7.5 cm anterior posterior Rhino Rocket in the nare. 04/27/21 14:57 Bleeding has resolved. We will discharge the patient home. Rhino Rocket should be removed on Tuesday. Departure - Departure Time of Disposition: 14:57 Disposition: Home, Self-Care 01 Condition: Good Clinical Impression: Epistaxis - Discharge Information *PRESCRIPTION DRUG MONITORING PROGRAM REVIEWED*: No Instructions: Nosebleed, [id number] Referrals: Geoff Infante MD [Primary Care Provider] - Forms: ED Department Discharge Additional Instructions: You were seen in the emergency department today to have your Rhino Rocket removed. After removal, unfortunately you did continue to have bleeding from the right nare. A new Rhino Rocket has been applied. This should stay in until Tuesday. After that time, you may return to the ER or to the clinic to have it removed. If you should experience any difficulties prior to this time, please not hesitate to return to the emergency department for reevaluation. Sepsis Event Note (ED) - Evaluation Sepsis Screening Result: No Definite Risk
[2021-04-27] MEDS ORDERED: Oxymetazoline 0.05% Nasal Spray 30 ML Bottle NAS ONE (12:08)
[2021-04-27] MEDS ORDERED: Lidocaine 1% with EPINEPHrine 1:100,000 10 ML MDV INJECT ONE (12:08)
== END 2021-04-27 15:18 | disposition home or self-care (01) ==
LOC: JD.ED 09:42
DX: R04.0 Epistaxis (principal); Z88.8 Allergy status to other drugs, medicaments and biological substances
CPT/HCPCS: 30903; 99283; A9270; 30901; 99282

== ENCOUNTER 2021-04-29 11:30 | Emergency (ER) | payer MEDICAID ==
--- NOTE | 2021-04-29 11:57 | EDM.PDOC ---
ED HPI GENERAL MEDICAL PROBLEM - General Chief Complaint: ENT Problem Stated Complaint: NOSE TUBE COMPLAINT Time Seen by Provider: 04/29/21 11:40 Source of Information: Reports: Patient, RN Notes Reviewed History Limitations: Reports: No Limitations - History of Present Illness INITIAL COMMENTS - FREE TEXT/NARRATIVE: Patient is a 65-year-old male presenting to the emergency department to have Rhino Rocket nasal packing in his right nare removed. I saw him in this ER 2 days ago to have a Rhino Rocket that was placed 2 days prior remove, however after removal the nose continued to bleed. Nare was repacked. Patient reports he has had no bleeding around the Rhino Rocket. He does have a history of recurrent epistaxis and thrombocytopenia. Reports he has been taking his Amicar as ordered for the last few days to prevent recurrence of bleeding. - Related Data Allergies Allergy/AdvReac Type Severity Reaction Status Date / Time aspirin AdvReac Severe Bleeding Verified 04/29/21 11:44 Home Meds: Home Meds Aminocaproic Acid [Amicar] 10 tab PO ASDIRECTED 04/23/21 [History] Erythromycin Base [Erythromycin 0.5% Ophth Oint] 1 applic OP TID #1 tube 04/25/21 [Rx] LORazepam [Ativan] 0.5 mg PO QPM #6 tablet 04/25/21 [Rx] cephALEXin [Cephalexin] 500 mg PO Q8HR #14 capsule 04/25/21 [Rx] Past Medical History HEENT History: Reports: Epistaxis, Impaired Vision Hematologic History: Reports: Other (See Below) Other Hematologic History: thrombocytopenia Social & Family History - Family History Family Medical History: No Pertinent Family History - Tobacco Use Tobacco Use Status *Q: Never Tobacco User - Caffeine Use Caffeine Use: Reports: None - Recreational Drug Use Recreational Drug Use: No - Living Situation & Occupation Living situation: Reports: , Alone 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 ED EXAM, ENT - Physical Exam Exam: See Below Exam Limited By: No Limitations General Appearance: Alert, WD/WN, No Apparent Distress Nose: Dried Blood. No: Active Bleeding Respiratory/Chest: No Respiratory Distress, Lungs Clear, Normal Breath Sounds, No Accessory Muscle Use, Chest Non-Tender Cardiovascular: Normal Peripheral Pulses, Regular Rate, Rhythm, No Edema, No Gallop, No JVD, No Murmur, No Rub Neurological: Alert, Oriented, CN II-XII Intact, Normal Cognition, Normal Gait, Normal Reflexes, No Motor/Sensory Deficits Psychiatric: Normal Affect, Normal Mood Skin: Warm, Dry, Intact, Normal Color, No Rash Course - Vital Signs Last Recorded V/S: Last Vital Signs Temp 97.1 F 04/29/21 11:42 Pulse 89 04/29/21 11:42 Resp 16 04/29/21 11:42 BP 133/83 04/29/21 11:42 Pulse Ox 94 L 04/29/21 11:42 - Re-Assessments/Exams Free Text/Narrative Re-Assessment/Exam: Patient is a 65-year-old male presenting to the emergency department to have Rhino Rocket nasal packing removed. This was placed 2 days ago in the ER. He has had no bleeding around the packing. After deflating the balloon, Rhino Rocket was removed without complication. There was no visible bleeding immediately following removal. We will watch him for short time to ensure bleeding does not recur. 04/29/21 12:23 Patient is a no recurrence of nosebleeding. We will discharge him home. Discharge instructions as documented. Departure - Departure Time of Disposition: 12:23 Disposition: Home, Self-Care 01 Condition: Good Clinical Impression: Right-sided epistaxis - Discharge Information *PRESCRIPTION DRUG MONITORING PROGRAM REVIEWED*: No *COPY OF PRESCRIPTION DRUG MONITORING REPORT IN PATIENT NELL: No Referrals: Geoff Infante MD [Primary Care Provider] - Forms: ED Department Discharge Additional Instructions: You were seen in the emergency department today to have your nasal packing removed from your right nare. Packing was removed and there was no recurrence of bleeding. Recommend you refrain from blowing your nose for the next 24 hours. Continue Amicar as prescribed. If there should be recurrence of a small amount of bleeding, you may try spraying some Afrin in your nare. If bleeding continues, return to ER. Sepsis Event Note (ED) - Evaluation Sepsis Screening Result: No Definite Risk - Focused Exam Vital Signs: Vital Signs Temp Pulse Resp BP Pulse Ox 04/29/21 11:42 97.1 F 89 16 133/83 94 L
== END 2021-04-29 12:30 | disposition home or self-care (01) ==
LOC: JD.ED 11:30
DX: Z48.00 Encounter for change or removal of nonsurgical wound dressing (principal); R04.0 Epistaxis
CPT/HCPCS: 99282

== ENCOUNTER 2021-05-11 11:08 | Emergency (ER) | payer MEDICAID ==
--- NOTE | 2021-05-11 11:19 | EDM.PDOC ---
ED HPI GENERAL MEDICAL PROBLEM - General Chief Complaint: ENT Problem Stated Complaint: NOSE BLEED Time Seen by Provider: 05/11/21 11:18 Source of Information: Reports: Patient History Limitations: Reports: No Limitations - History of Present Illness INITIAL COMMENTS - FREE TEXT/NARRATIVE: 65-year-old male presents to the ED with a left-sided nosebleed since around 00 30 hours this morning. He usually bleeds from his right side. Patient frequents the ER due to recurrent nosebleeds. He does have a humidifier in his sleeping quarters. He did take 2 tablets of aminocaproic acid this morning. He has a chronic thrombocytopenia felt to be contributing to his nosebleeds. No recent nasal trauma. Aware of some blood running down the back of his throat and out the right side of his nares at times as well. He presents at this time with minimal bleeding in left naris packed with gauze. He reports he is not had his blood work checked for a lengthy period of time. Onset: Today, Sudden Onset Date: 05/11/21 Onset Time: 00:30 Duration: Hour(s):, Constant Location: Reports: Face (Left-sided epistaxis.) Quality: Reports: Other Severity: Moderate (No pain) Improves with: Reports: Other (Proved with packing.) Worsens with: Reports: Other Context: Denies: Activity (Blowing his nose), Exercise, Lifting, Sick Contact, Trauma, Other Associated Symptoms: Reports: Loss of Appetite, Malaise. 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 (see below) (Aminocaproic acid tablets 10 mg x 2 this morning) - Related Data Allergies Allergy/AdvReac Type Severity Reaction Status Date / Time aspirin AdvReac Severe Bleeding Verified 05/11/21 11:19 Home Meds: Home Meds Aminocaproic Acid [Amicar] 10 tab PO ASDIRECTED 04/23/21 [History] LORazepam [Ativan] 0.5 mg PO QPM #6 tablet 04/25/21 [Rx] Past Medical History HEENT History: Reports: Epistaxis (Current epistaxis felt to be due to thrombocytopenia), Impaired Vision Hematologic History: Reports: Other (See Below) Other Hematologic History: thrombocytopenia Social & Family History - Family History Family Medical History: No Pertinent Family History - Caffeine Use Caffeine Use: Reports: None - Living Situation & Occupation Living situation: Reports: , Alone 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 Denies: Fever, Chills, Malaise HEENT: Reports: Glasses, Nosebleed Respiratory: Reports: No Symptoms (Epistaxis from left nose primarily.) Cardiovascular: Reports: No Symptoms Endocrine: Reports: No Symptoms GI/Abdominal: Reports: No Symptoms : Reports: Frequency, Other (Nocturia x1-2) Musculoskeletal: Reports: No Symptoms, Back Pain Skin: Reports: No Symptoms (Occasional low back pain.). Denies: Bruising Neurological: Reports: No Symptoms Psychiatric: Reports: No Symptoms Hematologic/Lymphatic: Reports: No Symptoms Immunologic: Reports: No Symptoms ED EXAM, ENT - Physical Exam Exam: See Below Exam Limited By: No Limitations General Appearance: Alert, WD/WN, No Apparent Distress, Other (Temperature is 36.4. Heart rate 84 and sinus respiratory is 18 with O2 sats of 98% room air. BP is 12/14/1986.) Eye Exam: Bilateral Eye: Normal Inspection (No scleral icterus or blepharal pallor.), PERRL Nose: Active Bleeding (Minimal active bleeding from the left nares. Large amount of clot in the posterior naris. There has been some bleeding in the floor of the right nares as well. Posterior oropharynx is slightly coated with blood.) Mouth/Throat: Other (Posterior oropharynx is slightly coated with blood from the nose.) Head: Atraumatic, Normocephalic Neck: Normal Inspection, Supple, Non-Tender, Full Range of Motion. No: Lymphadenopathy (L), Lymphadenopathy (R) Respiratory/Chest: No Respiratory Distress, Lungs Clear, Normal Breath Sounds, No Accessory Muscle Use Cardiovascular: Normal Peripheral Pulses, Regular Rate, Rhythm, No Edema, No Gallop, No Murmur, No Rub Course - Vital Signs Last Recorded V/S: Last Vital Signs Temp 36.4 C 05/11/21 11:14 Pulse 84 05/11/21 11:14 Resp 18 06/21/21 11:14 BP 124/87 05/11/21 11:14 Pulse Ox 98 05/11/21 11:14 - Orders/Labs/Meds Labs: Laboratory Tests 05/11/21 05/11/21 Range/Units 11:35 11:35 WBC 5.47 (4.23-9.07) K/mm3 RBC 5.31 (4.63-6.08) M/mm3 Hgb 12.9 L (13.7-17.5) gm/dl Hct 42.3 (40.1-51.0) % MCV 79.7 (79.0-92.2) fl MCH 24.3 L (25.7-32.2) pg MCHC 30.5 L (32.2-35.5) g/dl RDW Std Deviation 66.1 H (35.1-43.9) fL Plt Count 277 (163-337) K/mm3 MPV 10.7 (9.4-12.3) fl Neut % (Auto) 65.1 (34.0-67.9) % Lymph % (Auto) 20.7 L (21.8-53.1) % [place] % (Auto) 12.1 (5.3-12.2) % Eos % (Auto) 1.5 (0.8-7.0) Baso % (Auto) 0.4 (0.1-1.2) % Neut # (Auto) 3.57 (1.78-5.38) K/mm3 Lymph # (Auto) 1.13 L (1.32-3.57) K/mm3 [place] # (Auto) 0.66 (0.30-0.82) K/mm3 Eos # (Auto) 0.08 (0.04-0.54) K/mm3 Baso # (Auto) 0.02 (0.01-0.08) K/mm3 PT 11.0 (9.7-12.0) SECONDS INR 1.03 APTT 25.4 (21.7-31.4) SECONDS - Radiology Interpretation Free Text/Narrative:: 65-year-old male presents to the ED with recurrent nosebleed. He frequents the ED due to nosebleeds. He has chronic thrombocytopenia. Current nosebleed started on the left side approximately 12:30 today. Is been bleeding ever since. Slows with packing of the nose with tube gauze. There is also evidence on exam that there is been some bleeding from the right naris. I had him blow his nose and remove a large amount of clot from the posterior left nares. I was unable to cauterize a midportion of the nasal septum which appears to be the source of the bleeding. He will have labs checked today which will include a CBC and coags. - Re-Assessments/Exams Free Text/Narrative Re-Assessment/Exam: 05/11/21 11:47 still has some active bleeding coming from the nasal septum posteriorly on the left side. I once again cauterized the suspect area with silver nitrate. We will review them in 10 minutes. 05/11/21 12:21 Lab tests reveal a normal white count at 5.47 with 65% neutrophils on the auto differential. Hemoglobin is 12.9 with hematocrit of 42.3. MCV is slightly low at 79.7. Platelet count 277,000. PT is 11.0 with an INR of 1.03 PTT is 25.4. Patient is still has some active bleeding coming from the posterior aspect of the nasal septum. I therefore packed his nose with Vaseline impregnated tube gauze to hopefully bring the bleeding under control. Labs were normal and therefore he will be discharged to home. He will return if he has any further bleeding problems. Departure - Departure Time of Disposition: 12:21 Disposition: Home, Self-Care 01 Condition: Fair Clinical Impression: Posterior epistaxis - Discharge Information *PRESCRIPTION DRUG MONITORING PROGRAM REVIEWED*: Not Applicable *COPY OF PRESCRIPTION DRUG MONITORING REPORT IN PATIENT NELL: Not Applicable Referrals: Geoff Infante MD [Primary Care Provider] - Forms: ED Department Discharge Additional Instructions: Evaluation in the emergency room today in regards to bleeding from the left naris since shortly after midnight today. You has a history of recurrent problems with nosebleeds. Cauterization failed to bring the bleeding under control as is appears to be slightly more posterior on the nasal septum. Your nose was therefore packed with Vaseline impregnated tube gauze to hopefully provide tamponade or pressure on the vessels to bring the bleeding under control. Suggest resting at home most of the afternoon with no nose blowing etc. The nasal pack should stay in for approximately 48 hours and you could remove it at home slowly. After this I would suggest using Polysporin ointment with the aid of a Q-tip placed up in each side of the nose coating the nasal septum every night at bedtime to hopefully prevent further nosebleeds over the summer months. Of course return to the ED if further nosebleed occurs. Sepsis Event Note (ED) - Evaluation Sepsis Screening Result: No Definite Risk - Focused Exam Vital Signs: Vital Signs Temp Pulse Resp BP Pulse Ox 05/11/21 11:14 36.4 C 84 18 124/87 98
== END 2021-05-11 12:40 | disposition home or self-care (01) ==
LOC: JD.ED 11:08
DX: R04.0 Epistaxis (principal); Z88.8 Allergy status to other drugs, medicaments and biological substances
CPT/HCPCS: 30901; 30905; 36415; 85025; 85610; 85730; 99283; 99283-25

== ENCOUNTER 2021-09-04 06:31 | Emergency (ER) | payer MEDICARE, MEDICAID ==
--- NOTE | 2021-09-04 08:24 | EDM.PDOC ---
ED HPI GENERAL MEDICAL PROBLEM - General Chief Complaint: ENT Problem Stated Complaint: NOSE BLEED Time Seen by Provider: 09/04/21 08:22 - History of Present Illness INITIAL COMMENTS - FREE TEXT/NARRATIVE: 66-year-old male returns the emergency room with a recurrent nosebleed. This started a couple days ago on and on and off basis. The patient was exposed to some dry he did air and this seems to be a trigger for him. Patient has recurrent nosebleeds he uses Amicar on an as-needed basis. He believes this slows the bleeding down but does not really stop it. Patient is complaining of some dizziness with change of position. He is not treated for hypertension. - Related Data Allergies Allergy/AdvReac Type Severity Reaction Status Date / Time aspirin AdvReac Severe Bleeding Verified 09/04/21 07:20 Home Meds: Home Meds Aminocaproic Acid [Amicar] 10 tab PO ASDIRECTED 04/23/21 [History] Past Medical History HEENT History: Reports: Epistaxis, Impaired Vision Hematologic History: Reports: Other (See Below) Other Hematologic History: thrombocytopenia Social & Family History - Family History Family Medical History: No Pertinent Family History - Tobacco Use Tobacco Use Status *Q: Never Tobacco User - Caffeine Use Caffeine Use: Reports: Coffee, Tea - Recreational Drug Use Recreational Drug Use: No - Living Situation & Occupation Living situation: Reports: , Alone 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 Denies: Nose Pain, Rhinitis, Sinus Problem Respiratory: Reports: No Symptoms Cardiovascular: Reports: No Symptoms Endocrine: Reports: No Symptoms GI/Abdominal: Reports: No Symptoms ED EXAM, ENT - Physical Exam Exam: See Below Exam Limited By: No Limitations General Appearance: Alert, No Apparent Distress Eye Exam: Bilateral Eye: Normal Inspection Ears: Normal External Exam, Normal Canal, Hearing Grossly Normal, Normal TMs Nose: Other (Area of septal bleeding right side this appears to have a clot over it) Mouth/Throat: Normal Inspection, Normal Gums, Normal Lips, Normal Oropharynx, Normal Teeth, Other (Scant amount of blood noted in the posterior pharynx) Head: Atraumatic, Normocephalic Neck: Normal Inspection, Supple, Non-Tender, Full Range of Motion Respiratory/Chest: No Respiratory Distress, Lungs Clear, Normal Breath Sounds, No Accessory Muscle Use, Chest Non-Tender Cardiovascular: Normal Peripheral Pulses, Regular Rate, Rhythm, No Edema Course - Vital Signs Last Recorded V/S: Last Vital Signs Temp 36.3 C 09/04/21 07:18 Pulse 80 09/04/21 07:18 Resp 16 09/04/21 07:18 BP 140/86 09/04/21 07:18 Pulse Ox 96 09/04/21 07:18 - Orders/Labs/Meds Labs: Laboratory Tests 09/04/21 09/04/21 Range/Units 08:43 08:43 WBC 5.33 (4.23-9.07) K/mm3 RBC 5.17 (4.63-6.08) M/mm3 Hgb 16.3 D (13.7-17.5) gm/dl Hct 47.7 (40.1-51.0) % MCV 92.3 H D (79.0-92.2) fl MCH 31.5 (25.7-32.2) pg MCHC 34.2 (32.2-35.5) g/dl RDW Std Deviation 54.0 H (35.1-43.9) fL Plt Count 168 D (163-337) K/mm3 MPV 11.2 (9.4-12.3) fl Neut % (Auto) 51.8 (34.0-67.9) % Lymph % (Auto) 26.6 (21.8-53.1) % [place] % (Auto) 12.0 (5.3-12.2) % Eos % (Auto) 8.8 H (0.8-7.0) Baso % (Auto) 0.6 (0.1-1.2) % Neut # (Auto) 2.76 (1.78-5.38) K/mm3 Lymph # (Auto) 1.42 (1.32-3.57) K/mm3 [place] # (Auto) 0.64 (0.30-0.82) K/mm3 Eos # (Auto) 0.47 (0.04-0.54) K/mm3 Baso # (Auto) 0.03 (0.01-0.08) K/mm3 PT 10.8 (9.7-12.0) SECONDS INR 0.97 APTT 26.8 (21.7-31.4) SECONDS Meds: Medications Discontinued Medications Generic Name Dose Route Start Last Admin Trade Name Karine PRN Reason Stop Dose Admin Lidocaine/Epinephrine 10 ml 09/04/21 08:40 Lidocaine 1% With Epinephrine 1:100,000 10 Ml Mdv INJECT 09/04/21 08:41 ONETIME ONE Oxymetazoline HCl 1 ml 09/04/21 08:40 Oxymetazoline 0.05% Nasal [place] 30 Ml Bottle OJ 09/04/21 08:41 ONETIME ONE Tranexamic Acid 1,000 mg 09/04/21 08:40 Tranexamic Acid 1,000 Mg/10 Ml Amp IVPUSH 09/04/21 08:41 ONETIME ONE - Re-Assessments/Exams Free Text/Narrative Re-Assessment/Exam: 09/04/21 10:28 Patient had a mild bleed identified on the right naris along the septum not actively bleeding at the time. The patient had a little bit of blood down the posterior pharynx I figured this was resolving. Patient complained of some lightheadedness so we will check a CBC which looks good. The patient has not had any more bleeding problems. I did anticipate chemical cautery however the did not do this as the patient was not actively bleeding. At this point of discharge patient home have him use Preparation H, or K-Y jelly to the external nares. He should continue to use his air humidifier. Departure - Departure Time of Disposition: 10:29 Disposition: Home, Self-Care 01 Clinical Impression: Right-sided epistaxis - Discharge Information Referrals: Geoff Infante MD [Primary Care Provider] - Forms: ED Department Discharge Additional Instructions: Return to the emergency room with any questions problems or worsening symptoms. You can try Preparation H to the external portion of the nose and just inside no more than 1/8 of an inch. Or use KY jelly. Do this every 4-6 hours while awake. Follow-up with your regular healthcare provider for recheck this next week if needed. Sepsis Event Note (ED) - Evaluation Sepsis Screening Result: No Definite Risk - Focused Exam Vital Signs: Vital Signs Temp Pulse Resp BP Pulse Ox 09/04/21 07:18 36.3 C 80 16 140/86 96
[2021-09-04] MEDS ORDERED: Oxymetazoline 0.05% Nasal Spray 30 ML Bottle NAS ONE (08:40)
[2021-09-04] MEDS ORDERED: Lidocaine 1% with EPINEPHrine 1:100,000 10 ML MDV INJECT ONE (08:40)
== END 2021-09-04 10:35 | disposition home or self-care (01) ==
LOC: JD.ED 06:31
DX: R04.0 Epistaxis (principal); Z88.8 Allergy status to other drugs, medicaments and biological substances
CPT/HCPCS: 36415; 85025; 85610; 85730; 99283; A9270-GY

== ENCOUNTER 2021-11-22 05:01 | Emergency (ER) | payer MEDICAID, MEDICARE ==
--- NOTE | 2021-11-22 05:40 | EDM.PDOC ---
ED HPI GENERAL MEDICAL PROBLEM - General Chief Complaint: ENT Problem Stated Complaint: NOSE BLEED Time Seen by Provider: 11/22/21 05:13 Source of Information: Reports: Patient History Limitations: Reports: No Limitations - History of Present Illness INITIAL COMMENTS - FREE TEXT/NARRATIVE: Mr. Floyd is a very pleasant 66-year-old gentleman with a past medical history significant for recurrent epistaxis, usually on the right, thought related to his chronic thrombocytopenia, who now presents the ED after again developing painless right-sided epistaxis yesterday morning, 11/21/2021. No recent nasal trauma. He has been packing his right nostril with a tissue. He states that the bleeding has been stopping, or at least slowing down, but restarting. He took a total of 10 tablets of aminocaproic acid yesterday, with the last dose around noon, with no improvement of his symptoms. At triage, the patient is found to be hemodynamically stable, afebrile, saturating 96% on room air. He appears to be relatively comfortable, in no acute distress. Other than the epistaxis, the patient denies having a recent fever, chills, sore throat, ear pain, nasal or sinus congestion, cough, dyspnea, chest pain, palpitations, nausea, vomiting, constipation, diarrhea, abdominal pain, urinary symptoms, recent weight gain or weight loss, recent bloody bowel movements or black bowel movements, recent joint aches, headaches, or rashes. The patient does not have a PCP. His Knurling Machine Operator is Dr. Geoff Infante. He does not recall the name of his Director Operations. He has received 2 Pfizer COVID vaccinations, although no influenza vaccination this season. - Related Data Allergies Allergy/AdvReac Type Severity Reaction Status Date / Time aspirin AdvReac Severe Bleeding Verified 11/22/21 05:14 Home Meds: Home Meds Aminocaproic Acid [Amicar] 10 tab PO ASDIRECTED 04/23/21 [History] Past Medical History HEENT History: Reports: Epistaxis (recurrent), Impaired Vision Hematologic History: Reports: Other (See Below) (Chronic thrombocytopenia) Social & Family History - Tobacco Use Tobacco Use Status *Q: Former Tobacco User Years of Tobacco use: 21 Packs/Tins Daily: 2 Month/Year Tobacco Last Used: Quit 1995 Tobacco Use Comment: Started smoking 1974 - Caffeine Use Caffeine Use: Reports: Coffee, Tea - Alcohol Use Alcohol Use History: No - Recreational Drug Use Recreational Drug Use: No - Living Situation & Occupation Living situation: Reports: , Alone 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 ED EXAM, ENT - Physical Exam Exam: See Below Exam Limited By: No Limitations General Appearance: Alert, WD/WN, No Apparent Distress Eye Exam: Bilateral Eye: EOMI, Normal Inspection Ears: Normal External Exam, Hearing Grossly Normal Nose: Other (Minimal bleeding from a visible vessel at the superior aspect of the right nasal septum) Mouth/Throat: Normal Inspection, Normal Gums, Normal Lips, Normal Oropharynx (No posterior oropharyngeal blood after cautery was applied and the patient cleaned his throat by gargling and spitting), Normal Teeth Head: Atraumatic, Normocephalic Course - Vital Signs Last Recorded V/S: Last Vital Signs Temp 36.2 C 11/22/21 05:12 Pulse 75 11/22/21 05:12 Resp 16 11/22/21 05:12 BP 122/86 11/22/21 05:12 Pulse Ox 96 11/22/21 05:12 Orthostatic Blood Pressure [ 105/74 Standing] Orthostatic Blood Pressure [ 114/74 Supine] - Orders/Labs/Meds Orders: Active Orders 24 hr Category Date Time Status Orthostatic Vital Signs [RC] STAT Care 11/22/21 05:48 Active Meds: Medications Discontinued Medications Generic Name Dose Route Start Last Admin Trade Name Karine PRN Reason Stop Dose Admin Cocaine HCl 1 ml 11/22/21 05:23 11/22/21 05:31 Cocaine 4 Ml Bottle TOP 11/22/21 05:24 1 ml ONETIME STA Administration - Re-Assessments/Exams Free Text/Narrative Re-Assessment/Exam: 11/22/21 05:25 I ordered some topical cocaine to see if we can get the bleeding to stop. 11/22/21 05:47 I applied topical cocaine to the right nostril and was able to visualize the bleeding vessel at the superior aspect of his right nasal septum. I then cauterized around and on the vessel, successfully stopping the bleeding. Because the patient complained of some dizziness, we are checking orthostatics. Given the relatively minor amount of epistaxis that he has been experiencing, I do not see an indication to check an H/H at this time. 11/22/21 05:58 The patient is not orthostatic. Notified by Joslyn CESAR that the patient's nose started bleeding again, but she squeezed it for about 1 minute, and it stopped. 11/22/21 06:14 I have reevaluated the patient. I do not see any bleeding at this time, but I explained to the patient that it is always possible that it may start to rebleed at any time. If that occurs, I recommended that he sit upright, tilt his head slightly forward, and pinch his nostrils tightly for 10 to 15 minutes. If that does not stop the bleeding, he should return to the ED for reevaluation, being aware that we would likely need to place a balloon. Otherwise, I would like the patient to follow-up with his Director Operations to get a definitive answer as to whether or not anything can be done about that recurrently bleeding vessel. Departure - Departure Time of Disposition: 06:15 Disposition: Home, Self-Care 01 Condition: Good Clinical Impression: Recurrent epistaxis - Discharge Information *PRESCRIPTION DRUG MONITORING PROGRAM REVIEWED*: Not Applicable *COPY OF PRESCRIPTION DRUG MONITORING REPORT IN PATIENT NELL: Not Applicable Referrals: Geoff Infante MD [Primary Care Provider] - Forms: ED Department Discharge Additional Instructions: You were seen in the emergency room for occurrence of a right nosebleed. The bleeding was controlled with topical cocaine, then a visible vessel was cauterized in the ER. If your nosebleeds again, we recommend that you sit upright, tilt your head slightly forward, and squeeze your nostrils tightly for 10 to 15 minutes. You can also squeeze with an ice cube, which may help. If you cannot control the bleeding with that method, please return to the ER for reevaluation. As discussed, we strongly recommend that you follow-up with your Director Operations (ENT) to get a definitive answer as to whether or not there is anything that can be done about your recurrent nosebleeds. Sepsis Event Note (ED) - Evaluation Sepsis Screening Result: No Definite Risk - Focused Exam Vital Signs: Vital Signs Temp Pulse Resp BP Pulse Ox 11/22/21 05:12 36.2 C 75 16 122/86 96 - My Orders Last 24 Hours: My Active Orders 11/22/21 05:48 Orthostatic Vital Signs [RC] STAT - Assessment/Plan Last 24 Hours: My Active Orders 11/22/21 05:48 Orthostatic Vital Signs [RC] STAT
== END 2021-11-22 06:30 | disposition home or self-care (01) ==
LOC: JD.ED 05:01
DX: R04.0 Epistaxis (principal); Z87.891 Personal history of nicotine dependence; Z88.6 Allergy status to analgesic agent; Z79.899 Other long term (current) drug therapy
CPT/HCPCS: 30901; 99283; C9046

== ENCOUNTER 2021-11-22 14:34 | Emergency (ER) | payer MEDICARE ==
--- NOTE | 2021-11-22 15:08 | EDM.PDOC ---
ED HPI GENERAL MEDICAL PROBLEM - General Chief Complaint: ENT Problem Stated Complaint: NOSE BLEED Time Seen by Provider: 11/22/21 14:57 - History of Present Illness INITIAL COMMENTS - FREE TEXT/NARRATIVE: 66-year-old male returns to the emergency room with a persistent intermittent nosebleed. This started yesterday can he came and went the patient has problems with dry air triggering his chronic recurring epistaxis. Patient was seen here early this morning and had an area cauterized. From reviewing that note looks like there was 1 attempt at cauterization. He had some oozing after this that was controlled with squeezing. He was observed for some time and then sent home. The patient started bleeding again he put quite a large piece of cotton inside his nose that has slowed it down again. He denies any dizziness chest pain chest pressure or shortness of breath. 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) ED ROS ENT - Review of Systems Review Of Systems: See Below Constitutional: Reports: No Symptoms HEENT: Reports: Nosebleed Respiratory: Reports: No Symptoms Cardiovascular: Reports: No Symptoms GI/Abdominal: Reports: No Symptoms Neurological: Reports: No Symptoms ED EXAM, ENT - Physical Exam Exam: See Below Exam Limited By: No Limitations General Appearance: Alert, No Apparent Distress, Other (This pulse rate was mildly elevated at 103 upon triage he is otherwise doing okay) Nose: Other (Bleeding from the right naris) Mouth/Throat: Other (Small amount of blood in the posterior pharynx) Head: Atraumatic, Normocephalic Neck: Normal Inspection, Supple, Non-Tender, Full Range of Motion. No: Lymphadenopathy (L), Lymphadenopathy (R) Respiratory/Chest: No Respiratory Distress, Lungs Clear, Normal Breath Sounds Cardiovascular: Regular Rate, Rhythm, No Edema, No Murmur, Tachycardia (Rate around 100) Course - Vital Signs Last Recorded V/S: Last Vital Signs Temp 36.5 C 11/22/21 15:03 Pulse 103 H 11/22/21 15:03 Resp 20 11/22/21 15:03 BP 142/97 H 11/22/21 15:03 Pulse Ox 97 11/22/21 15:03 - Orders/Labs/Meds Labs: Laboratory Tests 11/22/21 11/22/21 11/22/21 Range/Units 15:42 15:42 15:42 WBC 7.29 (4.23-9.07) K/mm3 RBC 4.60 L (4.63-6.08) M/mm3 Hgb 14.7 D (13.7-17.5) gm/dl Hct 44.1 (40.1-51.0) % MCV 95.9 H D (79.0-92.2) fl MCH 32.0 (25.7-32.2) pg MCHC 33.3 (32.2-35.5) g/dl RDW Std Deviation 42.3 (35.1-43.9) fL Plt Count 208 (163-337) K/mm3 MPV 11.2 (9.4-12.3) fl Neut % (Auto) 58.4 (34.0-67.9) % Lymph % (Auto) 26.9 (21.8-53.1) % Deuel % (Auto) 12.1 (5.3-12.2) % Eos % (Auto) 2.1 (0.8-7.0) Baso % (Auto) 0.4 (0.1-1.2) % Neut # (Auto) 4.26 (1.78-5.38) K/mm3 Lymph # (Auto) 1.96 (1.32-3.57) K/mm3 Deuel # (Auto) 0.88 H (0.30-0.82) K/mm3 Eos # (Auto) 0.15 (0.04-0.54) K/mm3 Baso # (Auto) 0.03 (0.01-0.08) K/mm3 PT 11.0 (9.7-12.0) SECONDS INR 0.99 APTT 25.0 (21.7-31.4) SECONDS Sodium 140 (136-145) mEq/L Potassium 4.4 (3.5-5.1) mEq/L Chloride 105 (98-107) mEq/L Carbon Dioxide 29 (21-32) mEq/L Anion Gap 10.4 (5-15) BUN 25 H (7-18) mg/dL Creatinine 0.9 (0.7-1.3) mg/dL Est Cr Clr Drug Dosing TNP Estimated GFR (MDRD) > 60 (>60) mL/min BUN/Creatinine Ratio 27.8 H (14-18) Glucose 89 (70-99) mg/dL Calcium 8.7 (8.5-10.1) mg/dL Total Bilirubin 0.4 (0.2-1.0) mg/dL AST 30 (15-37) U/L ALT 74 H (16-63) U/L Alkaline Phosphatase 120 H (46-116) U/L Total Protein 7.1 (6.4-8.2) g/dl Albumin 3.3 L (3.4-5.0) g/dl Globulin 3.8 gm/dL Albumin/Globulin Ratio 0.9 L (1-2) - Re-Assessments/Exams Free Text/Narrative Re-Assessment/Exam: 11/22/21 15:33 Initial exam he had some bleeding next to the area that was cauterized earlier this morning. I did cauterize this area and it seems to be working at this point however I will attempt no more cautery on him if he starts bleeding again he will be treated with a anterior Rhino Rocket. 11/22/21 17:30 Just placed a 5.5 rapid Rhino. Patient had continued bleeding. 7 cc of air placed 11/22/21 18:27 About 20 minutes ago it pulled 2 cc of air out this feels better he is not having any increased bleeding he has a drop here and there anteriorly and its about it. We will go and discharge home at this time his platelet counts over 200,000 H&H appear stable. Departure - Departure Time of Disposition: 18:28 Disposition: Home, Self-Care 01 Clinical Impression: Right-sided epistaxis, Anterior epistaxis - Discharge Information Referrals: Geoff Infante MD [Primary Care Provider] - Forms: ED Department Discharge Additional Instructions: Return to the emergency room with any questions problems or worsening symptoms. Follow-up with your regular healthcare provider in 4 days for packing removal or follow-up at the hospital clinic if you do not have a local healthcare provider. Hospital clinic phone number is [phone] Sepsis Event Note (ED) - Focused Exam Vital Signs: Vital Signs Temp Pulse Resp BP Pulse Ox 11/22/21 15:03 36.5 C 103 H 20 142/97 H 97
== END 2021-11-22 18:33 | disposition home or self-care (01) ==
LOC: JD.ED 14:34
DX: R04.0 Epistaxis (principal); Z88.6 Allergy status to analgesic agent
CPT/HCPCS: 36415; 80053; 85025; 85610; 85730; 99283

== ENCOUNTER 2021-11-26 11:54 | Emergency (ER) | payer MEDICARE ==
--- NOTE | 2021-11-26 14:29 | EDM.PDOC ---
ED HPI GENERAL MEDICAL PROBLEM - General Chief Complaint: ENT Problem Stated Complaint: NOSEBLEED CHECKUP Time Seen by Provider: 11/26/21 12:52 Source of Information: Reports: Patient, Old Records, RN Notes Reviewed History Limitations: Reports: No Limitations - History of Present Illness INITIAL COMMENTS - FREE TEXT/NARRATIVE: Patient is a 66-year-old male return to emergency department to have Rhino Rocket removed from right nare. This was inserted 3 days ago. He has had a very small amount of drainage around the packing. Patient has a history of recurrent nosebleeds. Patient also complains of itching and purulent drainage from right eye with crusting in the morning. This is been going on for about 2 days. Denies any fever or chills. - Related Data Allergies Allergy/AdvReac Type Severity Reaction Status Date / Time aspirin AdvReac Severe Bleeding Verified 11/26/21 12:55 Home Meds: Home Meds Aminocaproic Acid [Amicar] 10 tab PO ASDIRECTED 04/23/21 [History] Erythromycin Base [Erythromycin 0.5% Ophth Oint] 1 applic OP Q6H #1 gm 11/26/21 [Rx] Past Medical History HEENT History: Reports: Epistaxis, Impaired Vision Psychiatric History: Reports: Anxiety Hematologic History: Reports: Other (See Below) Social & Family History - Tobacco Use Tobacco Use Status *Q: Unknown Ever Used Tobacco - Caffeine Use Caffeine Use: Reports: Coffee, Tea - Living Situation & Occupation Living situation: Reports: , Alone 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 ED EXAM, ENT - Physical Exam Exam: See Below Exam Limited By: No Limitations General Appearance: Alert, WD/WN, No Apparent Distress Eye Exam: Right Eye: Conjunctival Injection (mild), Other (small amount of yellow drainage to inner canthus of right eye) Nose: Other (right rhino rocket in place) Respiratory/Chest: No Respiratory Distress, Lungs Clear, Normal Breath Sounds, No Accessory Muscle Use, Chest Non-Tender Cardiovascular: Normal Peripheral Pulses, Regular Rate, Rhythm, No Edema, No Gallop, No JVD, No Murmur, No Rub Neurological: Alert, Oriented, Normal Cognition, Normal Gait, Normal Reflexes, No Motor/Sensory Deficits Psychiatric: Normal Affect, Normal Mood Skin: Warm ( ), Dry, Intact, Normal Color, No Rash Course - Vital Signs Last Recorded V/S: Last Vital Signs Temp 98.5 F 11/26/21 12:52 Pulse 89 11/26/21 12:52 Resp 18 11/26/21 12:52 BP 124/75 11/26/21 12:52 Pulse Ox 98 11/26/21 12:52 - Re-Assessments/Exams Free Text/Narrative Re-Assessment/Exam: Patient is a 66-year-old male presenting to emergency department to have nasal packing removed from right nare. He also complains of itching and purulent drainage from his right eye for the last few days. On exam, there is a faint injection of the right conjunctive a as well as a very small amount of yellow drainage to the inner canthus. I have removed the Rhino Rocket. I will monitor to see if bleeding returns 11/26/21 14:32 Unfortunately, right nare did start bleeding a moderate amount again. On exploration, there is an area in the upper septum of the right nare that is likely the source of the bleeding. The surrounding tissue appears to be quite friable due to previous cauterization attempts. I am not going to attempt recauterizing the area. I have reinserted a 5.5 cm Rhino Rocket in the right nare with seven mils of air. Bleeding has stopped. Recommend that he leave this in until Tuesday and then return to have it removed. I did recommend that he take his Amicar today as well. I will prescribe erythromycin ointment for right conjunctivitis. Discharge instructions as documented. Departure - Departure Time of Disposition: 14:23 Disposition: Home, Self-Care 01 Condition: Good Clinical Impression: Right-sided epistaxis - Discharge Information *PRESCRIPTION DRUG MONITORING PROGRAM REVIEWED*: No *COPY OF PRESCRIPTION DRUG MONITORING REPORT IN PATIENT NELL: No Prescriptions: Erythromycin Base [Erythromycin 0.5% Ophth Oint] 1 applic OP Q6H #1 gm Instructions: Nosebleed, Adult Referrals: Geoff Infante MD [Primary Care Provider] - Additional Instructions: Take your Amicar today. Nasal packing should stay in for 2 days. After that time, you may return to the ER to have it removed. Use the erythromycin ointment as prescibed. Return to ER for any concerns. Sepsis Event Note (ED) - Evaluation Sepsis Screening Result: No Definite Risk - Focused Exam Vital Signs: Vital Signs Temp Pulse Resp BP Pulse Ox 11/26/21 12:52 98.5 F 89 18 124/75 98
== END 2021-11-26 14:19 | disposition home or self-care (01) ==
LOC: JD.ED 11:54
DX: R04.0 Epistaxis (principal); Z88.8 Allergy status to other drugs, medicaments and biological substances
CPT/HCPCS: 30903; 99283-25

== ENCOUNTER 2021-11-29 12:05 | Emergency (ER) | payer MEDICARE | END 2021-11-29 16:43 | disposition home or self-care (01) | LOC: JD.ED 12:05 | DX: R04.0 Epistaxis (principal); Z88.8 Allergy status to other drugs, medicaments and biological substances | CPT/HCPCS: 30901; 30903; 99283; 99283-25 ==

== ENCOUNTER 2021-12-08 13:56 | Emergency (ER) | payer MEDICARE | END 2021-12-08 18:30 | disposition home or self-care (01) | LOC: JD.ED 13:56 | DX: R04.0 Epistaxis (principal); Z88.8 Allergy status to other drugs, medicaments and biological substances | CPT/HCPCS: 30905; 36415; 85014; 85018; 99283-25 ==

== ENCOUNTER 2021-12-09 12:23 | Emergency (ER) | payer MEDICARE | END 2021-12-09 14:32 | disposition home or self-care (01) | LOC: JD.ED 12:23 | DX: R04.0 Epistaxis (principal); Z88.8 Allergy status to other drugs, medicaments and biological substances; Z87.891 Personal history of nicotine dependence | CPT/HCPCS: 30903; 99283-25 ==

== ENCOUNTER 2021-12-10 10:07 | Emergency (ER) | payer MEDICARE | END 2021-12-10 11:29 | disposition home or self-care (01) | LOC: JD.ED 10:07 | DX: R60.0 Localized edema (principal); Z88.8 Allergy status to other drugs, medicaments and biological substances | CPT/HCPCS: 99283 ==

== ENCOUNTER 2021-12-11 16:30 | Emergency (ER) | payer MEDICARE | END 2021-12-11 18:18 | disposition home or self-care (01) | LOC: JD.ED 16:30 | DX: R04.0 Epistaxis (principal); Z88.8 Allergy status to other drugs, medicaments and biological substances | CPT/HCPCS: 99283 ==

== ENCOUNTER 2022-01-18 04:30 | Emergency (ER) | payer MEDICAID, MEDICARE | END 2022-01-18 05:25 | disposition home or self-care (01) | LOC: JD.ED 04:30 | DX: M25.562 Pain in left knee (principal); Z88.8 Allergy status to other drugs, medicaments and biological substances | CPT/HCPCS: 99283 ==

== ENCOUNTER 2022-01-30 06:14 | Emergency (ER) | payer MEDICAID, MEDICARE ==
[2022-01-30] MEDS ORDERED: Acetaminophen/HYDROcodone 325-5 MG Tab PO ONE (09:37)
== END 2022-01-30 10:55 | disposition home or self-care (01) ==
LOC: JD.ED 06:14
DX: S80.12XA Contusion of left lower leg, initial encounter (principal); Z87.891 Personal history of nicotine dependence; Z88.8 Allergy status to other drugs, medicaments and biological substances
CPT/HCPCS: 36415; 85025; 93971; 99284; A9270

== ENCOUNTER 2022-03-25 03:45 | Emergency (ER) | payer MEDICARE, MEDICAID | END 2022-03-25 07:14 | disposition home or self-care (01) | LOC: JD.ED 03:45 | DX: R04.0 Epistaxis (principal); Z88.8 Allergy status to other drugs, medicaments and biological substances; Z87.891 Personal history of nicotine dependence | CPT/HCPCS: 30903; 99283; C9046 ==

== ENCOUNTER 2022-03-27 11:29 | Emergency (ER) | payer MEDICARE, MEDICAID | END 2022-03-27 13:45 | disposition home or self-care (01) | LOC: JD.ED 11:29 | DX: R04.0 Epistaxis (principal); Z88.6 Allergy status to analgesic agent | CPT/HCPCS: 30903; 36415; 80053; 85025; 85610; 94640; 99283-25 ==

== ENCOUNTER 2022-03-27 17:17 | Emergency (ER) | payer MEDICARE, MEDICAID | END 2022-03-27 18:09 | disposition left against medical advice (07) | LOC: JD.ED 17:17 | DX: Z53.21 Procedure and treatment not carried out due to patient leaving prior to being seen by health care provider (principal) ==

== ENCOUNTER 2022-03-28 21:52 | Emergency (ER) | payer MEDICARE, MEDICAID | END 2022-03-29 01:15 | disposition home or self-care (01) | LOC: JD.ED 21:52 | DX: R04.0 Epistaxis (principal); Z88.8 Allergy status to other drugs, medicaments and biological substances; Z87.891 Personal history of nicotine dependence | CPT/HCPCS: 30905; 36415; 85014; 85018; 99283-25 ==

== ENCOUNTER 2022-03-29 11:50 | Emergency (ER) | payer MEDICARE, MEDICAID ==
[2022-03-29] MEDS ORDERED: Oxymetazoline 0.05% Nasal Spray 30 ML Bottle NAS ONE (12:38)
== END 2022-03-29 16:09 | disposition home or self-care (01) ==
LOC: JD.ED 11:50
DX: R04.0 Epistaxis (principal); Z88.6 Allergy status to analgesic agent; Z79.899 Other long term (current) drug therapy
CPT/HCPCS: 30901; 36415; 85025; 99283; A9270

== ENCOUNTER 2022-03-29 19:31 | Emergency (ER) | payer MEDICARE, MEDICAID | END 2022-03-29 21:24 | disposition home or self-care (01) | LOC: JD.ED 19:31 | DX: R04.0 Epistaxis (principal); Z87.891 Personal history of nicotine dependence; Z79.899 Other long term (current) drug therapy; Z88.6 Allergy status to analgesic agent | CPT/HCPCS: 99283 ==

== ENCOUNTER 2022-04-20 06:12 | Emergency (ER) | payer MEDICARE, MEDICAID | END 2022-04-20 08:48 | disposition home or self-care (01) | LOC: JD.ED 06:12 | DX: R04.0 Epistaxis (principal); Z79.899 Other long term (current) drug therapy; Z88.6 Allergy status to analgesic agent | CPT/HCPCS: 30901; 36415; 85025; 99283-25 ==

== ENCOUNTER 2022-04-25 17:38 | Emergency (ER) | payer MEDICARE, MEDICAID | END 2022-04-25 19:27 | disposition home or self-care (01) | LOC: SUPCPDRO 17:38 → JD.ED 17:38 | DX: T80.89XA Other complications following infusion, transfusion and therapeutic injection, initial encounter (principal); D69.3 Immune thrombocytopenic purpura; R04.0 Epistaxis; Z88.8 Allergy status to other drugs, medicaments and biological substances | CPT/HCPCS: 30901; 99283; 99283-25 ==

== ENCOUNTER 2022-09-13 09:36 | Emergency (ER) | payer MEDICARE, MEDICAID ==
[2022-09-13] MEDS ORDERED: Lidocaine 1% with EPINEPHrine 1:100,000 10 ML MDV INJECT ONE (11:47)
[2022-09-13] MEDS ORDERED: Oxymetazoline 0.05% Nasal Spray 30 ML Bottle NAS ONE (11:48)
[2022-09-13] MEDS ORDERED: Acetaminophen 325 MG Tab PO ONE (14:46)
== END 2022-09-13 19:11 | disposition home or self-care (01) ==
LOC: JD.ED 09:36
DX: R04.0 Epistaxis (principal); Z88.6 Allergy status to analgesic agent
CPT/HCPCS: 30903; 36415; 36430; 85025; 86900; 86901; 96374; 99283; A9270; J1200; P9034

== ENCOUNTER 2022-09-16 16:09 | Emergency (ER) | payer MEDICARE, MEDICAID ==
[2022-09-16] MEDS ORDERED: Acetaminophen 325 MG Tab PO ONE (16:45)
[2022-09-16] MEDS ORDERED: Sodium Chloride 0.9% 250 ML IV SCH (18:00)
[2022-09-16] MEDS ORDERED: Loratadine 10 MG Tab PO ONE (19:27)
== END 2022-09-16 20:15 | disposition home or self-care (01) ==
LOC: JD.ED 16:09
DX: R04.0 Epistaxis (principal); D69.6 Thrombocytopenia, unspecified; Z79.899 Other long term (current) drug therapy; Z88.6 Allergy status to analgesic agent; Z87.891 Personal history of nicotine dependence
CPT/HCPCS: 36415; 36430; 86900; 86901; 99283; A9270; J7050; P9034

== ENCOUNTER 2022-10-21 09:25 | Emergency (ER) | payer MEDICAID, MEDICARE ==
[2022-10-21] MEDS ORDERED: Oxymetazoline 0.05% Nasal Spray 30 ML Bottle NAS ONE (10:08)
== END 2022-10-21 16:03 | disposition home or self-care (01) ==
LOC: JD.ED 09:25
DX: R04.0 Epistaxis (principal); Z88.8 Allergy status to other drugs, medicaments and biological substances
CPT/HCPCS: 30901; 36415; 85025; 99283; A9270; 36430; 86900; 86901; 96374; J1200; J7050; P9034

== ENCOUNTER 2022-10-26 21:44 | Emergency (ER) | payer MEDICARE ==
[2022-10-26] MEDS ORDERED: Oxymetazoline 0.05% Nasal Spray 30 ML Bottle NAS ONE (22:25)
[2022-10-26] MEDS ORDERED: Tranexamic Acid 1,000 MG/10 ML Vial IV ONE (23:40)
== END 2022-10-27 00:48 | disposition home or self-care (01) ==
LOC: JD.ED 21:44
DX: R04.0 Epistaxis (principal); Z88.8 Allergy status to other drugs, medicaments and biological substances
CPT/HCPCS: 30901; 36415; 85025; 96374; 99283; A9270; C9046

== ENCOUNTER 2022-10-27 15:42 | Emergency (ER) | payer MEDICARE ==
[2022-10-27] MEDS ORDERED: Oxymetazoline 0.05% Nasal Spray 30 ML Bottle NAS ONE (16:50)
[2022-10-27] MEDS ORDERED: Acetaminophen 325 MG Tab PO ONE (17:40)
== END 2022-10-27 22:29 | disposition home or self-care (01) ==
LOC: JD.ED 15:42
DX: R04.0 Epistaxis (principal); Z88.8 Allergy status to other drugs, medicaments and biological substances
CPT/HCPCS: 30901; 99283; A9270-GY

== ENCOUNTER 2022-10-28 03:18 | Emergency (ER) | payer MEDICARE | END 2022-10-28 05:00 | disposition home or self-care (01) | LOC: JD.ED 03:18 | DX: R04.0 Epistaxis (principal); Z88.8 Allergy status to other drugs, medicaments and biological substances | CPT/HCPCS: 36415; 85025; 99283 ==

== ENCOUNTER 2022-10-31 14:49 | Emergency (ER) | payer MEDICARE ==
[2022-10-31] MEDS ORDERED: Lidocaine 1% with EPINEPHrine 1:100,000 10 ML MDV INJECT ONE (16:45)
[2022-10-31] MEDS ORDERED: Phenylephrine 0.5% Nasal Spray 15 ML Bot NASBOTH ONE (16:45)
== END 2022-10-31 20:08 | disposition home or self-care (01) ==
LOC: JD.ED 14:49
DX: R04.0 Epistaxis (principal); Z88.6 Allergy status to analgesic agent; Z79.899 Other long term (current) drug therapy
CPT/HCPCS: 30905; 36415; 85025; 99283; A9270

== ENCOUNTER 2022-11-10 21:10 | Emergency (ER) | payer MEDICARE | END 2022-11-11 05:46 | disposition home or self-care (01) | LOC: JD.ED 21:10 | DX: R04.0 Epistaxis (principal); Z88.6 Allergy status to analgesic agent; Z79.899 Other long term (current) drug therapy; Z87.891 Personal history of nicotine dependence | CPT/HCPCS: 36415; 85025; 99283; C9046 ==

== ENCOUNTER 2022-12-24 08:02 | Emergency (ER) | payer MEDICARE, MEDICAID | END 2022-12-24 15:24 | disposition home or self-care (01) | LOC: JD.ED 08:02 | DX: R04.0 Epistaxis (principal); D69.1 Qualitative platelet defects; Z88.8 Allergy status to other drugs, medicaments and biological substances | CPT/HCPCS: 30901; 36415; 85025; 99283 ==